=== PATIENT | female | born 1960 | race Caucasian/White ===

== ENCOUNTER 2019-12-22 12:14 | Outpatient (REF) | payer MEDICARE, SELFPAY | END 2019-12-22 12:15 | disposition home or self-care (01) | LOC: HO.MANLNP 12:14 | PROVIDERS: PCP Physician Assistant; Visit Provider Physician Assistant | DX: R50.9 Fever, unspecified (principal) | CPT/HCPCS: 87086; 87088; 87186 ==

== ENCOUNTER 2020-06-02 10:15 | Outpatient (REF) | payer MEDICARE, SELFPAY ==
[2020-06-02 12:42] LABS: MANUAL DIFF FLAG NO
[2020-06-02 12:44] LABS: Basophils Percent Auto 0.3 % (0-2); Eosinophils Absolute Auto 0.1 X10*3/uL (0.0-0.4); Eosinophils Percent Auto 0.5 % (0-4); Hematocrit 40.6 % (37-47); Hemoglobin 13.5 g/dl (12.0-16.0); Imm Gran Abs Auto 0.07 X10*3/uL (0.00-0.03); Imm Gran Pct Auto 0.6 % (0.0-0.4); Lymphocytes Absolute Auto 3.2 X10*3/uL (1.2-4.9); Lymphocytes Percent Auto 25.8 % (20-40); Mean Corpuscular HGB Conc 33.3 g/dl (31.0-35.0); Mean Corpuscular Hemoglobin 32.8 pg (27.0-33.0); Mean Corpuscular Volume 98.5 fL (80-98); Monocytes Absolute Auto 0.8 X10*3/uL (0.1-1.2); Monocytes Percent Auto 6.7 % (2-11); Neutrophils Absolute Auto 8.3 X10*3/uL (2.0-8.3); Neutrophils Percent Auto 66.1 % (45-73); Platelet Count 407 X10*3/uL (160-400); Red Blood Count 4.12 X10*6/uL (4.20-5.50); Red Cell Distribution Width 14.9 % (11.0-16.0); White Blood Count 12.5 X10*3/uL (4.8-10.8)
[2020-06-02 13:51] LABS: Erythrocyte Sedimentation Rate 17 MM/HR (0-20)
[2020-06-02 14:03] LABS: Alanine Aminotransferase 15 U/L (0-31); Albumin Level 4.4 g/dL (3.5-5.0); Alkaline Phosphatase 111 U/L (39-117); Anion Gap 17 (12-20); Aspartate Amino Transferase 19 U/L (5-31); Bilirubin Total 0.3 mg/dL (0.0-1.0); Blood Urea Nitrogen 15 mg/dL (9-16); C Reactive Protein 0.12 mg/dL (< or = 0.50); Calcium 9.7 mg/dL (8.4-10.2); Carbon Dioxide 22 mmol/L (22-29); Chloride 105 mmol/L (96-108); Estimated Glomerular Filt Rate > 60; Glucose Fasting 89 mg/dL (60-99); Iron 72 mcg/dL (30-160); Percent Iron Saturation 21 % (15-50); Potassium 4.5 mmol/L (3.3-5.1); Sodium 139 mmol/L (135-145); Total Iron Binding Capacity 340 mcg/dL (228-428); Unsaturated Iron Binding 268 ug/dL
[2020-06-02 14:23] LABS: Ferritin 21 ng/mL (10-250)
== END 2020-06-02 10:16 | disposition home or self-care (01) ==
LOC: HO.MANLDS 10:15
PROVIDERS: PCP Internal Medicine; Visit Provider Physician Assistant
DX: K92.1 Melena (principal)
CPT/HCPCS: 36415; 80053; 82728; 83540; 85025; 85652; 86140

== ENCOUNTER 2021-01-03 12:02 | Outpatient (REF) | payer MEDICARE, SELFPAY | END 2021-01-03 12:03 | disposition home or self-care (01) | LOC: HO.MANLNP 12:02 | PROVIDERS: PCP Physician Assistant; Visit Provider Physician Assistant | DX: R30.9 Painful micturition, unspecified (principal) | CPT/HCPCS: 87086; 87088; 87186 ==

== ENCOUNTER 2021-04-23 10:44 | Outpatient (REF) | payer MEDICARE, SELFPAY ==
[2021-04-23 13:27] LABS: MANUAL DIFF FLAG NO
[2021-04-23 13:32] LABS: Basophils Percent Auto 0.3 % (0-2); Eosinophils Absolute Auto 0.1 X10*3/uL (0.0-0.4); Eosinophils Percent Auto 0.5 % (0-4); Hematocrit 39.3 % (37.0-47.0); Hemoglobin 13.3 g/dl (12.0-16.0); Imm Gran Abs Auto 0.03 X10*3/uL (0.00-0.03); Imm Gran Pct Auto 0.3 % (0.0-0.4); Lymphocytes Absolute Auto 3.2 X10*3/uL (1.2-4.9); Lymphocytes Percent Auto 28.1 % (20-40); Mean Corpuscular HGB Conc 33.8 g/dl (31.0-35.0); Mean Corpuscular Hemoglobin 33.3 pg (27.0-33.0); Mean Corpuscular Volume 98.3 fL (80.0-98.0); Mean Platelet Volume 10.5 fL (9.4-12.3); Monocytes Absolute Auto 0.8 X10*3/uL (0.1-1.2); Monocytes Percent Auto 7.3 % (2-11); Neutrophils Absolute Auto 7.3 x10*3/uL (2.0-8.3); Neutrophils Percent Auto 63.5 % (45-73); Platelet Count 385 X10*3/uL (160-400); Red Cell Distribution Width 13.8 % (11.0-16.0); White Blood Count 11.5 X10*3/uL (4.8-10.8)
[2021-04-23 14:12] LABS: Alanine Aminotransferase 10 U/L (0-31); Albumin Level 4.2 g/dL (3.5-5.0); Alkaline Phosphatase 93 U/L (39-117); Anion Gap 14 (12-20); Aspartate Amino Transferase 16 U/L (5-31); Bilirubin Total 0.2 mg/dL (0.0-1.0); Blood Urea Nitrogen 18 mg/dL (9-16); C Reactive Protein 0.12 mg/dL (< or = 0.50); Calcium 9.9 mg/dL (8.4-10.2); Carbon Dioxide 25 mmol/L (22-29); Chloride 104 mmol/L (96-108); Estimated Glomerular Filt Rate > 60; Glucose Random 90 mg/dL (60-115); Iron 54 mcg/dL (30-160); Lactate Dehydrogenase 132 U/L (122-220); Percent Iron Saturation 16 % (15-50); Potassium 4.5 mmol/L (3.3-5.1); Sodium 138 mmol/L (135-145); Total Iron Binding Capacity 337 mcg/dL (228-428); Total Protein 6.9 g/dL (6.5-8.0); Unsaturated Iron Binding 283 ug/dL
[2021-04-23 14:16] LABS: Erythrocyte Sedimentation Rate 13 MM/HR (0-20)
[2021-04-23 14:26] LABS: Rheumatoid Factor < 15.0 IU/mL (<15.0)
[2021-04-23 14:32] LABS: Ferritin 37 ng/mL (10-250); Free T4 (Free Thyroxine) 0.75 ng/dL (0.71-1.85); Thyroid Stimulating Hormone 1.33 uIU/mL (0.32-4.0); Vitamin D 25-OH Total 21.9 ng/mL (>30)
[2021-04-23 14:46] LABS: Folate 4.2 ng/mL (> or = 4.0); Vitamin B12 346 pg/mL (200-900)
[2021-04-24 18:31] LABS: Follicle Stimulating Hormone 44.8 mIU/mL; Lutenizing Hormone 33.8 mIU/mL
[2021-04-24 22:37] LABS: Antibody to SS-A Antigen <1.0 NEG AI (<1.0 NEG); Antibody to SS-B Antigen <1.0 NEG AI (<1.0 NEG)
[2021-04-25 12:47] LABS: Prot Elec - Albumin 4.3 g/dL (3.8-4.8); Prot Elec - Alpha1 0.3 g/dL (0.2-0.3); Prot Elec - Alpha2 0.8 g/dL (0.5-0.9); Prot Elec - Beta 1 0.4 g/dL (0.4-0.6); Prot Elec - Beta 2 0.3 g/dL (0.2-0.5); Prot Elec - Gamma 0.7 g/dL (0.8-1.7); Prot Elec - Total Protein 6.8 g/dL (6.1-8.1)
[2021-04-25 13:36] LABS: Anti Nuclear Antibody Screen NEGATIVE (NEGATIVE)
[2021-04-28 02:51] LABS: Estradiol Free 0.31 pg/mL; Estradiol, Ultrasensitive 28 pg/mL
== END 2021-04-23 10:45 | disposition home or self-care (01) ==
LOC: HO.MANLDS 10:44
PROVIDERS: PCP Physician Assistant; Visit Provider Physician Assistant
DX: R53.83 Other fatigue (principal); L65.8 Other specified nonscarring hair loss; R50.84 Febrile nonhemolytic transfusion reaction; Z78.0 Asymptomatic menopausal state
CPT/HCPCS: 36415; 80053; 82306; 82607; 82670; 82681; 82728; 82746; 83001; 83002; 83540; 83615; 84165; 84439; 84443; 85025; 85652; 86038; 86039; 86140; 86235; 86431

== ENCOUNTER 2021-08-29 14:56 | Outpatient (REF) | payer MEDICARE, SELFPAY ==
[2021-08-29 17:48] LABS: MANUAL DIFF FLAG NO
[2021-08-29 17:52] LABS: Basophils Absolute Auto 0.1 X10*3/uL (0.0-0.2); Basophils Percent Auto 0.4 % (0-2); Eosinophils Absolute Auto 0.2 X10*3/uL (0.0-0.4); Eosinophils Percent Auto 1.4 % (0-4); Hematocrit 39.2 % (37.0-47.0); Hemoglobin 13.3 g/dl (12.0-16.0); Imm Gran Abs Auto 0.07 X10*3/uL (0.00-0.03); Imm Gran Pct Auto 0.5 % (0.0-0.4); Lymphocytes Absolute Auto 4.2 X10*3/uL (1.2-4.9); Mean Corpuscular HGB Conc 33.9 g/dl (31.0-35.0); Mean Corpuscular Hemoglobin 33.1 pg (27.0-33.0); Mean Corpuscular Volume 97.5 fL (80.0-98.0); Mean Platelet Volume 10.1 fL (9.4-12.3); Monocytes Absolute Auto 1.4 X10*3/uL (0.1-1.2); Neutrophils Absolute Auto 7.6 x10*3/uL (2.0-8.3); Neutrophils Percent Auto 56.7 % (45-73); Platelet Count 378 X10*3/uL (160-400); Red Blood Count 4.02 X10*6/uL (4.20-5.50); Red Cell Distribution Width 14.3 % (11.0-16.0); White Blood Count 13.5 X10*3/uL (4.8-10.8)
[2021-08-29 18:10] LABS: Alanine Aminotransferase 22 U/L (0-31); Albumin Level 4.4 g/dL (3.5-5.0); Alkaline Phosphatase 117 U/L (39-117); Amylase 63 U/L (28-100); Anion Gap 13 (12-20); Aspartate Amino Transferase 22 U/L (5-31); Bilirubin Total 0.3 mg/dL (0.0-1.0); Blood Urea Nitrogen 13 mg/dL (9-16); Calcium 9.4 mg/dL (8.4-10.2); Carbon Dioxide 26 mmol/L (22-29); Chloride 105 mmol/L (96-108); Estimated Glomerular Filt Rate > 60; Gamma Glutamyl Transpeptidase 41 U/L (7-33); Glucose Random 79 mg/dL (60-115); Lipase 27 U/L (8-78); Potassium 3.7 mmol/L (3.3-5.1); Sodium 140 mmol/L (135-145); Total Protein 6.9 g/dL (6.5-8.0)
== END 2021-08-29 14:57 | disposition home or self-care (01) ==
LOC: HO.MANLDS 14:56
PROVIDERS: Visit Provider Physician Assistant
DX: K59.09 Other constipation (principal)
CPT/HCPCS: 36415; 80053; 82150; 82977; 83690; 85025

== ENCOUNTER 2021-09-03 10:22 | Outpatient (REF) | payer MEDICARE, SELFPAY ==
[2021-09-03 13:24] LABS: Adenovirus F 40/41 Not Detected (Not Detect.); Astrovirus Not Detected (Not Detect.); Campylobacter Not Detected (Not Detect.); Cryptosporidium Not Detected (Not Detect.); Cyclospora cayetanensis Not Detected (Not Detect.); E. coli EAEC Not Detected (Not Detect.); E. coli EPEC Not Detected (Not Detect.); E. coli ETEC Not Detected (Not Detect.); E. coli STEC Not Detected (Not Detect.); Entamoeba histolytica Not Detected (Not Detect.); Giardia lamblia Not Detected (Not Detect.); Norovirus GI/GII Not Detected (Not Detect.); Plesiomonas shigelloides Not Detected (Not Detect.); Rotavirus A Not Detected (Not Detect.); Salmonella Not Detected (Not Detect.); Sapovirus Not Detected (Not Detect.); Shigella sp./EIEC Not Detected (Not Detect.); Vibrio Not Detected (Not Detect.); Vibrio Cholerae Not Detected (Not Detect.); Yersinia enterocolitica Not Detected (Not Detect.)
== END 2021-09-03 10:23 | disposition home or self-care (01) ==
LOC: HO.MANLDS 10:22
PROVIDERS: Visit Provider Physician Assistant
DX: K59.09 Other constipation (principal)
CPT/HCPCS: 36415; 87507

== ENCOUNTER 2024-06-09 11:39 | Outpatient (REF) | payer MEDICARE, SELFPAY ==
--- OUTSIDE RECORDS SUMMARY | 2024-06-09 14:07 | XMS_ITS | Data Portability ---
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 MUST MEET 2 OUT OF 3 ELEMENTS: PROBLEMS, DATA OR RISK ELEMENT 1: PROBLEMS ADDRESSED 1 OR MORE CHRONIC ILLNESS WITH EXACERBATION OR 2 OR MORE STABLE CHRONIC ILLNESSES OR 1 UNDIAGNOSED NEW PROBLEM OR 1 ACUTE ILLNESS W/SYMPTOMS OR 1 ACUTE COMPLICATED INJURY ELEMENT 2: DATA MUST MEET 1 OF 3 CATEGORIES CATEGORY 1: REVIEW OF PRIOR EXTERNAL NOTES, REVIEW OF RESULTS, ORDERING OF EACH TEST, ASSESSMENT REQUIRING INDEPENDENT HISTORIAN OR CATEGORY 2: INDEPENDENT INTERPRETATION OF TESTS BY ANOTHER PHYSICIAN OR SPECIALIST OR CATEGORY 3: DISCUSSION OF MGT OR TEST INTERPRETATION W/EXTERNAL PHYSICIAN OR SPECIALIST ELEMENT 3: RISK RISK OF COMPLICATIONS AND/OR MORBIDITY OR MORTALITY OF PATIENT MANAGEMENT PROVIDER MUST THOROUGHLY DOCUMENT EACH ELEMENT THAT IS COVERED Not available 08/09/2022 15:57:59 Plan of Treatment Reminders Order Date Submit Date Provider Last Modified By Organization Details Last Modified Time Details Appointments None recorded. Lab hepatitis C Ab, serum 2022 023 [facility], [address] [place] [address], [address], 3 16:00:52 iron + TIBC + ferritin, serum 2021 022 [facility], [address] [place] [address], [address], 2 14:35:22 CBC w/ auto diff 2021 022 [facility], [address] [place] [address], [address], 14:35:22 fecal occult blood, stool 2021 022 [facility], [address] [facility], [address], [place], [address], 15:27:19 C diff screen, stool, reflex PCR 2021 022 [facility], [address] [place], [address], 14:35:22 Referral None recorded. Procedures None recorded. Surgeries None recorded. Imaging CT, abdomen + pelvis, w/ contrast 2024 025 [email or web address] [facility], [address] [place], [address], 5 13:31:40 MRI, abdomen + pelvis, w/o contrast 2022 023 hrubner Not available 3 08:34:15 XR, kidney + ureter + bladder 2022 023 [email or web address] Not available 3 08:38:00 Medication Orders hydrocodon e 5 mg-acetami nophen 325 mg tablet 2024 025 [facility] #2024, [address] [place], [address], 5 11:19:28 cephalexin 500 mg tablet 2023 024 [email or web address] [facility] #2024, [address] [place], [address], 5 10:46:37 oxycodone 5 mg tablet 2022 023 [email or web address] [facility], [address] [place] [address], [id number], 5 10:47:01 dicyclomin e 10 mg capsule 2021 022 [facility]58613, [address] [place], [place], [id number], 3 15:10:58 tizanidine 4 mg tablet 2021 022 [facility] #59361, [address] [place], [place], [id number], 2 14:29:39 Patient TargetsNo targets recorded. Patient Instructions Encounter Date Encounter Id Patient Instructions Last Modified By Organization Details Last Modified Time 05/17/2024 [id number] chronic pelvic pain: care instructions Not available 05/17/2024 11:19:26 Reason for Referral None Reported. Results Created Date Observation Date Name Description Value Unit Range Abnormal Flag Note LastModifiedBy Organization Detail LastModifiedTime 01/17/20 22 01/15/2022 CT, abdom en + pelvi s, w/ contr ast No observ ation record ed. [facility] [address] [facility] [address], [place], [address], 01/16/2022 13:48:46 01/17/20 22 01/15/2022 MAMMO , scree ayah, digit al, bilat eral No observ ation record ed. [facility] [address] [place] [address], [address], 01/17/2022 07:22:29 08/16/19 23 08/14/2022 XR, kidne y + urete r + bladd er No observ ation record ed. [facility] (Scheduling Dept) [address] [place] [address], [address], 08/27/2022 10:16:58 Result Notes None recorded. Problems Name Problem SNOMED Code Status Onset Date Resolution Date Notes Provider Name and Address Organization Details Recorded Time Chronic interstit ial cystitis 369598558 Active 2018 Not Available [facility] 3 11:12:35 Irritable bowel syndrome 40302078 Active 2018 Not Available [facility] 3 11:12:35 Iron deficienc y anemia 68906983 Active 2018 Not Available [facility] 3 11:12:36 Acute urinary tract infection 217801977 Active 2021 Not Available [facility] 3 11:12:36 Constipat ion 91348160 Active 2021 Not Available [facility] 3 11:12:35 Uniform abdominal distentio n 632400289 Active 2021 Not Available [facility] 3 11:12:36 Localized abdominal distentio n 399055719 Active 2021 Not Available [facility] 3 11:12:36 Colitis 59731839 Active 2021 Not Available [facility] 3 11:12:36 Obstipati on 357204823 Active 2021 Not Available [facility] 3 11:12:35 Abdominal pain 16361868 Active 2021 Not Available [facility] 3 11:12:36 Stomach cramps 92123300 Active 2021 Not Available [facility] 3 11:12:36 Gastroint estinal hemorrhag e 58146252 Active 2021 Not Available [facility] 3 11:12:36 Partial obstructi on of intestine 645885302302 90827 Active 2021 Not Available [facility] 3 11:12:35 Internal hemorrhoi ds 77020200 Active 2021 Not Available [facility] 3 11:12:36 Influenza -like symptoms 948233768 Active 2022 Not Available [facility] 3 11:12:36 Incisiona l hernia 264600841 Active 2022 Not Available [facility] 3 11:12:36 Acute pyeloneph ritis 07596948 Active 2022 Not Available [facility] 3 11:12:36 Hernia of anterior abdominal wall 567665966 Active 2022 Not Available [facility] 3 11:12:36 Adhesion of abdominal wall 35592842 Active 2022 Not Available [facility] 3 11:12:36 Rupture of hernia of abdominal wall 457987960 Active 2022 Not Available [facility] 3 11:12:36 Female pelvic inflammat ory disease 153959835 Active 2022 Not Available [facility] 3 11:12:35 Acute sinusitis 78945479 Active 2023 SHANTHI ESQUIVEL [address] [place] [address], [address], [facility] 4 14:22:02 Celluliti s 396406493 Active 2023 SHANTHI ESQUIVEL [address] [place], [address], [facility] 4 13:41:01 Acute otitis media 8662551 Active 2023 SHANTHI ESQUIVEL [address] [place], [address], [facility] 4 10:13:35 Chronic pelvic pain without obvious pathology 791798662 Active 2024 Abad Cee DO [address] [place] [address], [address], [facility] 5 11:14:46 Urostomy present 093032171 Active 2017 Not Available [facility] 3 11:12:36 Problem Notes None recorded. Procedures Surgical History Date Name Laterality Status Provider Name and Address Organization Details Recorded Time 11/07/19 18 Colonoscopy completed Rena Aragon [facility] 11/07/2017 08:08:36 Total Hysterectomy completed Abad Cee DO [address] [place] [address], [phone], [facility] 05/09/2021 10:00:52 Imaging Results Imaging Date Name Status LastModified by Organiz ation Details LastModified Time 01/15/2022 CT, abdomen + pelvis, w/ contrast completed [facility] [address] [facility] [address], [place], [address], 01/16/2022 13:48:46 01/15/2022 MAMMO, screening, digital, bilateral completed [address] [facility] [address] [place] [address], [address], 01/17/2022 07:22:29 08/14/2022 XR, kidney + ureter + bladder completed [address] (Scheduling Dept) [address] [place], [address], 08/27/2022 10:16:58 Procedure Notes None recorded. Medical Equipment None Reported. Allergies Allergen ID Allergen Name Allergen Category Reaction Reaction Severity Criticality Documentation Date Start Date Code Code System Note Provider Name and Address Organization Details Recorded Time 1863 Avelox medicatio n angioedem a Not available Not available 2017 55693 6 RxNorm Doris Blankenship NP, S [address] [place], [address], [facility] 8 14:08:07 1865 Iodinated contrast media (substanc e) medicatio n angioedem a Not available Not available 2017 85188 2004 SNOMED Doris Blankenship NP, S [address] [place], [address], [facility] 8 14:08:22 4010 Cipro medicatio n Not available Not available Not available 10/01/201983422 3 RxNorm flu like sympt oms, muscl e pain SHANTHI ESQUIVEL [address] [place], [address], [facility] 1 11:46:41 6968 tramadol medicatio n headache Not available [facility] 08/09/2022 58843 RxNorm Abad Cee DO [address] [place], [address], [facility] 5 11:12:07 Medications Name Sig Start Date Stop Date Status Note LastModified by Organization Details LastModified Time diphenhydra mine hcl 25mg capsules TAKE 2 CAPSULES 1 HOUR PRIOR TO TEST active Not Available Not Available No t Available Prescriptio n - New 08/30 completed Not Available Not Available Not Available amoxicillin 500 mg capsule TAKE 2 CAPSULES BY MOUTH NOW THEN 1 CAPSULE BY MOUTH EVERY 8 HOURS UNTIL ALL TAKEN 08/09 completed Not Available Not Available Not Available fluconazole 100 mg tablet TAKE 1 TABLET BY MOUTH EVERY DAY active Not Available Not Available No t Available cetirizine 10 mg tablet TAKE 1 TABLET 1 HOUR PRIOR TO TEST active Not Available Not Available No t Available tizanidine 4 mg tablet TAKE 1 TABLET BY MOUTH EVERY 6 HOURS NEEDED FOR 14 DAYS 2024 active Not Available Not Available Not Avai lable hydrocodone 5 mg-acetamin ophen 325 mg tablet Take 1 tablet every 6 hours by oral route as needed for 7 days. 2024 active Not Available Not Available Not Avai lable prochlorper azine maleate 5 mg tablet TAKE 1 TABLET EVERY 4 HOURS BY ORAL ROUTE FOR 90 DAYS. active Not Available Not Available No t Available metronidazo le 250 mg tablet Take 1 tablet 3 times a day by oral route for 10 days. 12/10 completed Not Available Not Available Not Available metronidazo le 500 mg tablet Take 1 tablet every 8 hours by oral route for 10 days. 12/21 completed Not Available Not Available Not Available ciprofloxac in 250 mg tablet TAKE 1 TABLET BY MOUTH TWICE DAILY FOR 10 DAYS 11/07 completed Not Available Not Available Not Available levofloxaci n 250 mg tablet TAKE 1 TABLET BY MOUTH EVERY DAY FOR 10 DAYS 08/09 completed Not Available Not Available Not Available ciprofloxac in 500 mg tablet TAKE 1 TABLET BY MOUTH EVERY 12 HOURS FOR 10 DAYS 05/17 completed Not Available Not Available Not Available sulfamethox azole 800 mg-trimetho prim 160 mg tablet TK 1 T PO Q 12 H FOR 10 DAYS 02/20 completed Not Available Not Available Not Available tramadol 50 mg tablet TAKE 1 TABLET BY MOUTH EVERY 6 HOURS FOR 7 DAYS 08/09 completed Not Available Not Available Not Available amoxicillin 875 mg tablet TAKE 1 TABLET BY MOUTH EVERY 12 HOURS FOR 7 DAYS 05/17 completed Not Available Not Available Not Available dicyclomine 20 mg tablet TAKE 1 TABLET BY MOUTH FOUR TIMES A DAY active Not Available Not Available No t Available cephalexin 500 mg capsule TAKE 1 CAPSULE BY MOUTH EVERY 6 HOURS DIRECTED FOR 7 DAYS 05/17 completed Not Available Not Available Not Available oseltamivir 75 mg capsule TAKE 1 CAPSULE BY MOUTH TWICE DAILY FOR 5 DAYS 08/09 completed Not Available Not Available Not Available ferrous sulfate 325 mg (65 mg iron) tablet Take 1 tablet every day by oral route. 07/01 completed Not Available Not Available Not Available prednisone 50 mg tablet active Not Available Not Available Not Available mirtazapine 45 mg tablet TAKE 1 TABLET BY MOUTH ONCE DAILY 08/30 completed Not Available Not Available Not Available cephalexin 500 mg tablet Take 1 tablet every 6 hours by oral route as directed for 7 days. 05/17 completed Not Available Not Available Not Available morphine ER 15 mg tablet,exte nded release Take 1 tablet every 8 hours by oral route for 2 days. 07/01 completed Not Available Not Available Not Available levofloxaci n 500 mg tablet TAKE 1 TABLET BY MOUTH EVERY 24 HOURS FOR 7 DAYS 05/17 completed Not Available Not Available Not Available Anusol-HC 25 mg rectal suppository Insert 1 supposito ry twice a day by rectal route for 14 days. 12/22 completed Not Available Not Available Not Available methylpredn isolone 4 mg tablets in a dose pack TAKE 6 TABLETS ON DAY 1 DIRECTED ON PACKAGE AND DECREASE BY 1 TAB EACH DAY FOR A TOTAL OF 6 DAYS 05/17 completed Not Available Not Available Not Available albuterol sulfate HFA 90 mcg/actuati on aerosol inhaler INHALE 2 PUFFS BY MOUTH EVERY 4 HOURS 08/09 completed Not Available Not Available Not Available dicyclomine 10 mg capsule TAKE 1 CAPSULE BY MOUTH THREE TIMES DAILY FOR 14 DAYS 08/09 completed Not Available Not Available Not Available estradiol 0.1 mg/24 hr weekly transdermal patch APPLY 1 PATCH TOPICALLY EVERY WEEK active Not Available Not Available No t Available naproxen 500 mg tablet 08/09 completed Not Available Not Available Not Available amoxicillin 875 mg-ruiz benitez clavulanate 125 mg tablet TAKE 1 TABLET BY MOUTH EVERY 12 HOURS FOR 10 DAYS 05/17 completed Not Available Not Available Not Available oxycodone 5 mg tablet TAKE 1 TABLET BY MOUTH TWICE A DAY NEEDED FOR 10 DAYS 05/17 completed Not Available Not Available Not Available Benadryl Allergy 25 mg tablet Take 2 tablets every 4 hours by oral route as needed. 08/09 completed Not Available Not Available Not Available nitrofurant oin monohydrate /macrocryst als 100 mg capsule TAKE 1 CAPSULE BY MOUTH EVERY 12 HOURS FOR 7 DAYS active Not Available Not Available No t Available lactulose 10 gram/15 mL oral solution TAKE 15 ML BY MOUTH EVERY DAY FOR 7 DAYS NEEDED 08/09 completed Not Available Not Available Not Available peg 3350-electr olytes 236 gram-22.74 gram-6.74 gram-5.86 gram solution MIX AND DRINK DIRECTED 08/09 completed Not Available Not Available Not Available Linzess 290 mcg capsule 08/09 completed Not Available Not Available Not Available Tylenol 325 mg capsule Take 2 capsules 3 times a day by oral route. 05/05 completed Not Available Not Available Not Available Vitals Date Recorded Body height Oxygen saturation Oxygen saturation in Arterial blood by Pulse oximetry Heart rate Systolic blood pressure Diastolic blood pressure Provider Name and Address Organization Details Last Updated DateTime 2 149.86 cm 97 % 97 % 88 /min 110 mm[Hg] 70 mm[Hg] Tami Franco [facility] 2 14:12:35 Date Recorded Body height Body mass index (BMI) Body weight Heart rate Oxygen saturation Oxygen saturation in Arterial blood by Pulse oximetry Systolic blood pressure Diastolic blood pressure Provider Name and Address Organization Details Last Updated DateTime 3 149.86 cm 20.3 kg/m2 54211.3 9 g 96 /min 96 % 96 % 108 mm[Hg] 60 mm[Hg] Abad Cee, DO [address] [place], [address], [facility] 3 15:13:01 Date Recorded Body height Heart rate Oxygen saturation Oxygen saturation in Arterial blood by Pulse oximetry Systolic blood pressure Diastolic blood pressure Provider Name and Address Organization Details Last Updated DateTime 3 149.86 cm 78 /min 96 % 96 % 110 mm[Hg] 72 mm[Hg] Xenia Morejon [facility] 3 14:33:36 Date Recorded Body height Body mass index (BMI) Body weight Systolic blood pressure Diastolic blood pressure Provider Name and Address Organization Details Last Updated DateTime 03/25/2023 149.86 cm 21.2 kg/m2 26043.2 g 120 mm[Hg] 80 mm[Hg] Lien Gomezmond [facility] 4 13:36:06 Date Recorded Body height Body mass index (BMI) Body weight Heart rate Oxygen saturation Oxygen saturation in Arterial blood by Pulse oximetry Systolic blood pressure Diastolic blood pressure Provider Name and Address Organization Details Last Updated DateTime 5 149.86 cm 22.9 kg/m2 69653.7 3 g 92 /min 98 % 98 % 124 mm[Hg] 78 mm[Hg] Debbie Caro [facility] 5 10:50:33 Social History Question Answer Notes LastModified by Organizat ion Details LastModified Time Tobacco Smoking Status Former Smoker Not Available [facility] 12/21/2019 03:36:24 What Was The Date Of Your Most Recent Tobacco Screening? 05/17/2024 [email or web address] Information not available 05/17/2024 Do You Or Have You Ever Used Any Other Forms Of Tobacco Or Nicotine? No Information not available 08/09/2022 Sex: Unknown Functional Status None recorded. Mental Status None recorded. Family History Nothing Reported. Medical History No medical history recorded. Gynecological HistoryNo gynecological history recorded. Obstetrics History GPAL:G 0 P 0 0 0 0 Immunizations Vaccine Type Date Status Note Provider Nam e and Address Organization Details Recorded Time COVID-19, mRNA, LNP-S, PF, 30 mcg/0.3 mL dose 1 completed Not Available [facility] 01/04/2022 19:06:28 Influenza, split virus, quadrivalent, preservative 1 completed Not Available [facility] 01/04/2022 19:06:28 COVID-19, mRNA, LNP-S, PF, 30 mcg/0.3 mL dose 2 completed Not Available [facility] 01/04/2022 19:06:28 SARS-COV-2 (COVID-19) vaccine, UNSPECIFIED 3 completed Xenia Morejon [facility], [facility] 11/15/2022 08:40:27 influenza nasal, unspecified formulation 3 completed Xenia Morejon [facility] 11/15/2022 08:40:44 Respiratory syncytial virus (RSV) vaccine, unspecified 3 completed Monroe Cee [facility] 01/03/2023 11:14:22 influenza nasal, unspecified formulation 4 completed Debbie Caro [facility] 11/17/2023 08:27:44 SARS-COV-2 (COVID-19) vaccine, UNSPECIFIED 4 completed Debbie Caro [facility] 11/17/2023 08:27:51 Past Encounters Encounter ID Performer Location Encounter Start Date Encounter Closed Date Diagnosis/Indication Diagnosis SNOMED-CT Code Diagnosis ICD10 Code Diagnosis Note [id number] Doris Blankenship NP, [facility] [address] [place] [address],[place] [address] 2017 14:01:11 09/02/2017 08:09:24 Acute cystitis 05956500 N30.00 [id number] Abad Cee DO [facility] [address],[place] [address] 09/17/2017 11:57:12 09/17/2017 14:35:20 Rectal hemorrhage 05071027 K62.5 multifacto rial etiology as this could be divertic or AVM [place] or [place] [id number] May AZAEL Rivera [facility] [address] [place] [address] 12/10/2017 10:27:40 12/10/2017 11:26:09 Acute urinary tract infection 102833633 N39.0 had an allergy to brand cipro, no difficulty with generic cipro [facility] 673633824 N30.10 [id number] [facility] [address] [facility], [place] [address] 01/30/2018 15:27:59 01/30/2018 16:07:30 Acute urinary tract infection 641976279 N39.0 as with cipro, she has had allergy to brand avelox, but has taken generic levaquin without issue Urostomy present 5487662 04 Z93.6 Chronic in terstitial cystitis 515650981 N30.10 [id number] Doris Blankenship NP, S [facility] [address] [facility], [place] [address] 05/05/2018 10:36:55 05/05/2018 14:31:25 Urostomy present 593956965 Z93.6 Irritable bowel syndrome 39934665 K58.9 prn bentyl Chronic in terstitial cystitis 373094806 N30.10 Iron defic iency anemia 81392505 D50.9 Chronic pain syndrome 37 8242454 G89.4 [id number] Abad Cee [facility] [address] [facility], [place] [address] 06/08/2018 11:44:28 06/08/2018 12:19:18 Internal hemorrhoids 17524963 K64.8 will treat and give pain med for discomffor t [id number] [facility] [address] [facility], [place] [address] 12/22/2018 11:23:18 12/22/2018 12:03:10 Diverticulitis of colon 377544096 K57.32 due to poor IV access, very reluctant to go to ER. will trial oral treatment if no improvemen t in 24 hours, agrees to go to ER continue probiotic [id number] Abad Cee [facility] [address] [facility], [place] [address] 01/04/2019 10:36:01 01/04/2019 11:01:16 Diverticulosis of sigmoid colon 228156694 K57.30 now having signif episodes of rectal bleeding with large clots and particulat e Iron defic iency anemia 05090468 D50.9 followed by hematology iron infusion was excellent [id number] SHANTHI ESQUIVEL [facility] [address] [facility] [address] [address] 07/02/2019 10:35:28 07/02/2019 11:41:11 Dysuria 10962745 R30.9 will treat for nephritis, she will let us know if she gets worse has been on cipro several times in the past, not had a reaction [id number] Abad Cee, [facility] [address] [facility] [address] 08/31/2019 10:58:22 08/31/2019 11:40:25 Fatigue 31066547 R53.83 Has history of anemia and rectal bleed Will recheck CBC for anemia and TSH Loss of appetite 2951643 6 R63.0 Lost 10-20 lb over last 3 mo Iron defic iency anemia 06555015 D50.9 followed by hematology - seeing at end of month Will get iron studies prior to tele call Depressive disorder 3548 9007 F32.9 was feeling crappy and decided it was the mirtszapin e and now feels markedly better [place] the med [id number] SHANTHI ESQUIVEL [facility] [address] [facility],[place] [address] 09/03/2019 14:26:49 09/03/2019 14:51:15 Dysuria 65937144 R30.9 [id number] SHANTHI ESQUIVEL [facility] [address] [facility] [address] [address] 10/01/2019 13:54:02 10/01/2019 14:48:47 Dysuria 45902644 R30.9 patient reports that last time she was on cipro she got very bad side effects do not want to put her on levaquin either as it may cause the same side effects she had will try bactrim if it not tolerable or doesn't work with try another medication Chronic in terstitial cystitis 725821502 N30.10 chronic infections Nausea 567697070 R11.0 will treat as she is on the medication Urostomy present 8178207 04 Z93.6 irritated, with abrasion present [id number] SHANTHI ESQUIVEL [facility] [address] [facility], [place] [address] 12/22/2019 10:40:21 12/22/2019 12:21:06 Fever 489511200 R50.9 the patient states she feels subjective feverish due to UTI symptoms no fever at office Acute urin donte tract infection 951789184 N39.0 results show UTI also stoma producing foul smelling urine and discharge [id number] Abad Cee DO [facility] [address] [facility], [place] [address] 02/23/2020 10:10:40 02/23/2020 11:27:27 Chronic interstitial cystitis 739631314 N30.10 obviously did not resolve with bactrim has had several reactions noted to avelox and cipro but has tolerated the levaquin in past with no side effects will tentativel y try the levaquin becuase there has been no other med available for this macrobid had been used by urology for 9 mo for preventati ve which then led to resistance Urostomy present 6559598 04 Z93.6 Iron defic iency anemia 23311032 D50.9 followed by hematology - seeing at end of month Will get iron studies prior to tele call [id number] SHANTHI ESQUIVEL [facility] [address] [place] [address], [place] [address] 06/02/2020 09:55:45 06/02/2020 10:29:54 Hematochezia 542682876 K92.1 will fu with GI to have them work her up will also set her up with BW to fu with as well to see how her iron, CBC has been impacted by them bleeding Rectal prolapse [id number] K62.3 will fu with GI, rectal prolapse vs internal hemorrhoid s Acute urin donte tract infection [id number] N39.0 reccurent UTI due to stoma [id number] SHANTHI ESQUIVEL [facility] [address] [place] [address],[place] [address] 01/03/2021 10:57:40 01/03/2021 15:38:55 Dysuria 54524382 R30.9 will fu with abx script [id number] SHANTHI ESQUIVEL [facility] [address] [facility] [address], [place] [address] 02/19/2021 09:49:46 02/21/2021 10:52:54 Nausea 250709610 R11.0 chronic nausea due to stoma and intestinal problems Chronic ur inary tract infection 225565910 N34.2 will start on cipro again, will change out abx next time [id number] SHANTHI ESQUIVEL [facility] [address] [facility] [address], [place] [address] 04/23/2021 10:22:34 04/23/2021 16:55:49 Fatigue 35971229 R53.83 f/u with BW panel Loss of hair 317802667 L 65.8 f/u with BW panelwill fu after lab results are recieved Urostomy present 7036524 04 Z93.6 stable Pyrexia of unknown origin 2049694 R50.84 lab work up Menopause 323505490 Z78. 0 will fu with lab testing for menopause as well as a possible explanatio n [id number] Abad Cee, [facility] [address] [facility], [place] [address] 05/09/2021 09:54:43 05/11/2021 09:17:40 Left lower quadrant pain 121817786 R10.32 having ongoing pain and partial obstructio n symptoms and fever we will order mri Chronic in terstitial cystitis 332649730 N30.10 uti again will need to tx Iron defic iency anemia 43697735 D50.9 followed by hematology - seeing at end of month Will get iron studies prior to tele call Irritable bowel syndrome 51830420 K58.9 seems to be quiet right now and her usual symptoms are absent [id number] [facility] [address] [facility] [address], [place] [address] 08/15/2021 09:28:30 08/15/2021 14:42:43 Constipation 61597260 K59.09 patient will be NPO, can drink waterwill fu with STAT XR ABD as this is the quickest imaging resultwill fu with patient afterwards if worsening [place] [address] Xenia Woodruff [facility] [address] [facility] [address],[place] [facility] [place] [address] 2021 14:25:09 2021 16:46:27 Constipation 43992972 K59.09 will fu with MRI, start on lactulose and stool sampling Localized abdominal distention 626311995 R14.0 will fu with full work up with MRI since CT did show thickening of her sigmoid colon and descending colon Colitis 80185157 K52.9 [place] [id number] Abad Cee DO [facility] [address] [facility],[place] [facility] [place] [address] 10/09/2021 10:17:37 10/09/2021 11:40:36 Chronic interstitial cystitis 329934405 N30.10 [place] [address] SHANTHI ESQUIVEL [facility] [address] [facility] [address],[place] [facility] [place] [address] 11/07/2021 14:01:13 11/07/2021 16:40:52 Abdominal pain 41948118 R10.0 fu with patient in a few weeks after she sees GI Stomach cramps 08920099 R10.0 will start on dicyclomin e and tizanidine in the meantime Gastrointe stinal hemorrhage 31382533 K92.0 will check levels since she is still bleedingdi d get into GI at [facility], appt is Nov 19 [address] Abad Cee DO [facility] [address] [facility] [address],[place] [facility] [place] [address] 08/09/2022 15:02:56 08/09/2022 16:14:51 Abdominal pain 95822860 R10.0 froma possible mesh shift or herniation or adhesion? she needs an mri but this has been denied by insurance repeatedly will get a KUB and then see if i can get an mrishe will need to see a surgeon pending this . Incisional hernia 107105 000 K43.2 tramadol ordered for poss pain from irritation Urostomy present 4634434 04 Z93.6 stable but irritated Hepatitis C screening 41 4203092 Z11.59 Advance care planning 71 3286215 Z71.89 77699 Abad Cee [facility] [address] [facility],[place] [address] 12/17/2022 14:18:24 12/17/2022 15:05:48 Colitis 34787586 K52.9 ongoing young currently ok Acute pyelonephritis 366 33875 N10 resolved Rupture of hernia of abdominal wall 422303866 K43.9 [id number] SHANTHI ESQUIVEL [facility] [address] [facility],[place] [address] 03/25/2023 13:23:01 03/25/2023 13:51:25 Nephrostomy 01099377 Z93.6 stable Cellulitis 921005811 L03 .211 will start on short course of cephalexin [id number] Abad Cee [facility] [address] [facility],[place] [address] 05/17/2024 10:41:08 05/17/2024 11:20:31 Iron deficiency anemia 12079273 D50.9 followed by hematology - seeing at end of month Will get iron studies prior to tele call Depression screening 171 172628 Z13.31 Urostomy present 9860112 04 Z93.6 stable but irritated Irritable bowel syndrome 66935807 K58.9 seems to be quiet right now and her usual symptoms are absent Chronic in terstitial cystitis 937992621 N30.10 ongoing pain syndrome secondary to prior surgery and scar and hernia mesh embedded Chronic pe lvic pain without obvious pathology 280380969 R10.2 will need referral to [facility] pain management Health Concerns Section Related Observation LastModified by Organization Detai ls LastModified Time None Recorded Concern Status LastModified by Organization Details LastModified Time None Recorded Advance Directives Directive None Recorded Payers Encounter Date Sequence Insurance Name Policy Number Policy Hendrix Covered Member ID Hendrix Member ID Guarantor Name 11/07/2021 1 [place] HMO) [id number] Deann L Ethier [id number] Deann L Ethier 08/09/2022 1 [place]MO) [id number] Deann L Ethier [id number] Deann L Ethier 12/17/2022 1 [place] HMO) [id number] Deann L Ethier [id number] Deann L Ethier 03/25/2023 1 [place]MO) [id number] Deann L Ethier [id number] Deann L Ethier 05/17/2024 1 [place]MED[place] HMO) [id number] Deann L Ethier [id number] Deann L Ethier 05/17/2024 2 [place] [facility] Deann L Ethier [id number] Deann L Ethier Notes Date Note Type Note Provider Name a nd Address Organization Details Recorded Time 2 text/html c/o abdominal pain the patient reports significant anal bleeding, all daythe patient reports the abdominal pain is still significant and worse when she has a bowel movementis set up for GI referral for Layhedid want her to get a colonoscopy done since imaging is normalcontinues to have rectal bleeding SHANTHI ESQUIVEL [address] [place], [address], [facility] 11/07/2021 14:43:27 3 text/html here for rechk and has been having a lot of pain and discomfort at her ostomy site and has noticed that her ostomy site has shifted to the the right and her umbilicus has shifted to the left this is a distinct change for her and i have never seen it like this in 20+ years Abad Cee DO [address] [place], [address], [facility] 08/09/2022 16:04:49 3 text/html here for med check she still needs to take the med bidto keep any semblance of control over the pain;she is only taking bidrelates that one day she didnt take of 3 days without withdrawal sx feels tizanidinestill having a great deal of discomfort and she is in signif pain daily unless she takes the oxycodrelates urol not helping her with the chronic pain and we are still wondering if the mesh for her hernia has been disruptedand /or ruptured as it had in the past Abad Cee DO [address] [place], [address], [facility] 12/17/2022 15:01:06 4 text/html c/o abscess/cellulitis the patient had an abscess behind left earhad an ear infection in that earended up rupturing this weekendgreen colored purulent dischargeno fever or chillslooks good today, no inflammation, no discharge or drainageno tenderness, no warmth does still have the opening to the area it drained fromwill start on short preventative course of keflexwill call if it starts filling up SHANTHI ESQUIVEL [address] [place], [address], [facility] 03/25/2023 13:48:30 5 text/html ongoing pelvic pain for years and it seems to have been worsened over time where no has ongoing pain Abad Cee DO [address] [place], [address], [facility] 05/17/2024 11:19:52 5 text/html Pelvic PainReported bypatient.Location:l eft; mid pelvis Onset/Timing:gradual Duration:constant; persistent Quality:throbbing; pressure increased with intercourse Associated Symptoms:no abdominal pain; no back pain; no chills; no constipation; no diarrhea; no vaginal discharge; no pain with urination; normal emptying of bladder; no feelings of urgency; no blood in the urine; normal libido; no fever; no nausea; no vomiting; no nocturia; no sexual abuse; no ectopic pregnancies; no endometriosis; no urinary frequency; no vaginal itching or irritation;dyspareun ia Abad Cee, DO [address] [facility], [place], [address], [facility] 05/17/2024 11:19:52 OBGyn Episode No OBEpisode recorded.
[2024-06-10 10:53] LABS: Rubella IgG Antibody 5.46 Index
== END 2024-06-09 11:40 | disposition home or self-care (01) ==
LOC: HO.MANLDS 11:39
PROVIDERS: Visit Provider Physician Assistant
DX: Z00.00 Encounter for general adult medical examination without abnormal findings (principal); Z28.39 Other underimmunization status
CPT/HCPCS: 36415; 86735; 86762; 86765

== ENCOUNTER 2024-10-27 09:50 | Outpatient (REF) | payer MEDICARE, SELFPAY ==
--- OUTSIDE RECORDS SUMMARY | 2024-10-27 11:48 | XMS_ITS | Encounter Summary ---
Author Organization [facility] Address [address] [place] [address] [place] [address] Phone Care Team Providers Care Manufacturing Team Leader Name Role Phone Abad Cee DO Primary Care Provider [phone] Reason for Referral * MRI/CAT Scan - Closed Specialty Diagnoses / Procedures Referred By Morris pruitt Referred To Contact Radiology Diagnoses LLQ pain Procedures MRI Abdomen CHG MRI, ABDOMEN, COMBO CHG MRI, ABDOMEN (MRI) CHG MRI, ABDOMEN W/CONTRAST Abad Cee DO Phone: tel: fax: [email or web address] Referral ID Status Reason Start Date Expiration Date Visits Re quested Visits Authorized [id number] Closed 05/09/2021 07/08/2021 1 1 Encounter Details Date Type Department Care Team (Late st Contact Info) Description 05/09/2021 Transcribe Orders Virtual Department [address] [place] [address] Abad Cee DO [address] [place] [address] [email or web address] LLQ pain (Primary Dx) Social History Tobacco Use Types Packs/Day Years Used Date Smoking Tobacco: Former Smokeless Tobacco: Never Alcohol Use Standard Drinks/Week Comments Not Currently 0 (1 standard drink = 0.6 oz pur e alcohol) Comments No Sex and Gender Information Value Date Recorded Sex Assigned at Female 10/12/2019 5:57 AM EDT Legal Sex Female 5:35 PM EST Gender Identity Not on file Sexual Orientation Straight 10/12/2019 5: 57 AM EDT documented as of this encounter Plan of Treatment Upcoming Encounters Date Type Department Care Team (Late st Contact Info) Description 10/12/2024 Procedure Pass [address] [address] 05/09/2025 3:10 PM EDT Appointment [address] [address] Abad Cee, [address] [place] [facility] [place] [address] [email or web address] documented as of this encounter Results * MRI ABDOMEN WITHOUT CONTRAST (06/27/2021 5:09 PM EDT) Anatomical Region Laterality Modality Abdomen Magnetic Resonan ce 06/28/2021 8:16 AM EDT Impressions 06/28/2021 8:29 AM EDT No explanation for pain. No evidence of acute pathology in the abdomen. Postsurgical changes. Narrative 06/28/2021 8:29 AM EDT MRI ABDOMEN WITHOUT CONTRAST HISTORY: Left lower quadrant pain, heme positive stool for 3 years, status-post cystectomy and creation of ileal conduit creation with bowel anastomosis. TECHNIQUE: A non-enhanced study is performed. Multiplanar MR imaging of the abdomen was performed using T1, T2, fat saturated, and diffusion weighted techniques. No intravenous contrast material was administered. COMPARISON: CT abdomen 03/03/2019. ABSENCE OF INTRAVENOUS CONTRAST DECREASES SENSITIVITY FOR DETECTION OF FOCAL LESIONS AND VASCULAR PATHOLOGY. FINDINGS: Lower Chest: No abnormalities demonstrated. Artifact involving the distal descending thoracic aorta. Liver: No abnormalities demonstrated. Biliary: No evidence of biliary ductal dilatation. Spleen: Normal. No splenomegaly or focal lesions. Pancreas: Normal. No masses or ductal dilatation. Adrenal Glands: Normal. No nodules. Kidneys/Ureters: Tiny cyst lateral aspect of the interpolar region of the right kidney. No other renal abnormalities. Proximal ureters normal in caliber. Bowel: Similar distention of the colon by stool as demonstrated on 03/03/2019. Partial imaging of a right lower quadrant ileostomy. Peritoneum/Retroperitoneum: No evidence of free fluid or masses. Lymph Nodes: No suspicious lymph nodes. Vessels: Abdominal aorta normal in caliber. Bones/Soft Tissues: No evidence of abdominal wall masses. No suspicious marrow signal abnormalities. Procedure Note Mason Ramires MD - 06/28/2021 MRI ABDOMEN WITHOUT CONTRAST HISTORY: Left lower quadrant pain, heme positive stool for 3 years,status-post cystectomy and creation of ileal conduit creation with bowelanastomosis. TECHNIQUE: A non-enhanced study is performed. Multiplanar MR imaging ofthe abdomen was performed using T1, T2, fat saturated, and diffusionweighted techniques. No intravenous contrast material was administered. COMPARISON: CT abdomen 03/03/2019. ABSENCE OF INTRAVENOUS CONTRAST DECREASES SENSITIVITY FOR DETECTION OFFOCAL LESIONS AND VASCULAR PATHOLOGY. FINDINGS: Lower Chest: No abnormalities demonstrated. Artifact involving the distaldescending thoracic aorta. Liver: No abnormalities demonstrated. Biliary: No evidence of biliary ductal dilatation. Spleen: Normal. No splenomegaly or focal lesions. Pancreas: Normal. No masses or ductal dilatation. Adrenal Glands: Normal. No nodules. Kidneys/Ureters: Tiny cyst lateral aspect of the interpolar region of theright kidney. No other renal abnormalities. Proximal ureters normal incaliber. Bowel: Similar distention of the colon by stool as demonstrated on03/03/2019. Partial imaging of a right lower quadrant ileostomy. Peritoneum/Retroperitoneum: No evidence of free fluid or masses. Lymph Nodes: No suspicious lymph nodes. Vessels: Abdominal aorta normal in caliber. Bones/Soft Tissues: No evidence of abdominal wall masses. No suspiciousmarrow signal abnormalities. IMPRESSION: No explanation for pain. No evidence of acute pathology in the abdomen.Postsurgical changes. Abad Cee DO [facility] MR ABDOMEN Final Result documented in this encounter Visit Diagnoses Diagnosis LLQ pain- Primary Abdominal pain, left lower quadrant LLQ pain Abdominal pain, left lower quadrant documented in this encounter Care Teams Manufacturing Team Leader Relationship Specialty Start Date End Date Abad Cee DO [email or web address] PCP - General 08/17/13 documented as of this encounter Additional Source Comments The information contained in this document represents components of the legal health record. It is not the complete legal health record.[facility]
--- OUTSIDE RECORDS SUMMARY | 2024-10-27 11:48 | XMS_ITS | Encounter Summary ---
Author Organization [facility] Address [address] [address] Phone Care Team Providers Care Plier Worker Name Role Phone HyacinthAbad pitt Primary Care Provider [phone] Encounter Details Date Type Department Care Team (Latest Contact Info) Description 08/15/2021 Transcribe Orders Virtual Department [address] [place] [address] Kelly Dee PA [address] [place] [address] [place] [address] Other constipation (Primary Dx) Social History Tobacco Use Types [...] AM EDT documented as of this encounter Functional Status * Calculated C-SSRS Risk Score (Lifetime/Recent) Answer Date of Assessment Author No Risk Indicated 08/15/2021 5:15 PM EDT Gaby Sharp, RN * [place] Suicide Severity Rating Scale (Screener/Recent Self-Report) Question Answer Date of Assessment Author 1. Wish to be (Past 1 Month) No 022 5:15 PM EDT Gaby Sharp, RN 2. Non-Specific Active Suici chris Thoughts (Past 1 Month) No 08/15/2021 5:15 PM EDT Gaby Sharp, RN 6. Suicidal Behavior (Lifetime) No 2 5:15 PM EDT Gaby Sharp, RN documented as of this encounter Plan of Treatment Upcoming Encounters Date Type Department Care Team (Late st Contact Info) Description 10/12/2024 Procedure Pass [address] [address] 05/09/2025 3:10 PM EDT Appointment [address] [address] Abad Cee DO [address] [facility] [place] [address] [email or web address] documented as of this encounter Visit Diagnoses Diagnosis Other constipation- Primary documented in this encounter Care Teams Plier Worker Relationship Specialty Start Date End Date Abad Cee DO PCP - General 08/17/13 documented as of this encounter Additional Source Comments The information contained in this document represents components of the legal health record. It is not the complete legal health record.[facility]
--- OUTSIDE RECORDS SUMMARY | 2024-10-27 11:48 | XMS_ITS | Encounter Summary ---
Author Organization [facility] Address [address] [place] [address] [place] [address] Phone Care Team Providers Care Low Altitude Air Defense Gunner Name Role Phone Abad Cee DO Primary Care Provider [phone] Encounter Details Date Type Department Care Team (Latest Contact Info) Description 06/12/2018 Transcribe Orders [facility] [address] [place] [address] Dajuan Santillan, EMMA [address] [place] [address] [email or web address] Abdominal pain, left lower quadrant (Primary Dx); Iron deficiency anemia, unspecified iron deficiency anemia type Social History Tobacco Use Types Packs/Day Years Used Date Smoking Tobacco: Never Smokeless Tobacco: Never Comments Unknown Sex and Gender Information Value Date Recorded Sex Assigned at Female 10/12/2019 5:57 AM EDT Legal Sex Female 5:35 PM EST Gender Identity Not on file Sexual Orientation Straight 10/12/2019 5: 57 AM EDT documented as of this encounter Plan of Treatment Upcoming Encounters Date Type Department Care Team (Late st Contact Info) Description 10/12/2024 Procedure Pass [address] [address] 05/09/2025 3:10 PM EDT Appointment [address] [address] Abad Cee DO 179 [facility] [place] [address] [place] [address] documented as of this encounter Results * TSH (06/12/2018 10:22 AM EDT) [facility] TSH 3.17 0.27 - 4.20 uIU/mL [facility] Blood 06/12/2018 10:2 2 AM EDT 06/12/2018 10:47 AM EDT Dajuan Santillan ORTHOPEDIC RADIOLOGIC TECHNOLOGIST LAB BLOOD ORDERABLES Final Re sult Performing Organization Address [facility]/ZIP Co de Phone Number [address] [address] * (ABNORMAL) Iron and iron binding capacity (06/12/2018 10:22 AM EDT) [facility] IRON 21(L) 30 - 160 ug/dL [facility] IRON BINDING CAPACITY 270 228 - 428 ug/dL [facility] TRANSFERRIN SATURAT. 8(L) 15 - 50 % [facility] Blood 06/12/2018 10:2 2 AM EDT 06/12/2018 10:47 AM EDT Dajuan Santillan ORTHOPEDIC RADIOLOGIC TECHNOLOGIST LAB BLOOD ORDERABLES Final Re sult Performing Organization Address [facility] Co de Phone Number [address] [address] * Hepatitis C genotyping (06/12/2018 10:22 AM EDT) [facility] HCV GENOTYPE Undetected Undetected [facility] Comment: (NOTE) Assay failed to detect HCV RNA. This assay is not intended for HCV RNA detection purposes. ADDITIONAL INFORMATION This test was performed using the Devi RealTime HCV Genotype II assay ([employer] [place], [place]). Blood (Blood) 06/12/2018 10: 22 AM EDT 06/12/2018 10:47 AM EDT Dajuan Santillan NP NON CULTURE MICROBIOLOGY Quin l Result [facility] [address] [place] [address] * Hepatitis B surface antigen (06/12/2018 10:22 AM EDT) HBV SURFACE ANTIGEN Negative Negative [facility] Blood 06/12/2018 10:2 2 AM EDT 06/12/2018 10:47 AM EDT Dajuan Santillan NP LAB BLOOD ORDERABLES Final Re sult Performing Organization Address [facility]/ZIP Co de Phone Number [address] [address] * Hepatitis B surface antibody (06/12/2018 10:22 AM EDT) HBV SURFACE ANTIBODY Negative [facility] Comment: Unvaccinated: Negative Vaccinated: Positive Blood 06/12/2018 10:2 2 AM EDT 06/12/2018 10:47 AM EDT Dajuan Santillan NP LAB BLOOD ORDERABLES Final Re sult Performing Organization Address [facility]/ZIP Co de Phone Number [address] [address] * HEPATITIS A ANTIBODY, TOTAL (06/12/2018 10:22 AM EDT) HAV TOTAL AB Negative Negative [facility] Blood 06/12/2018 10:2 2 AM EDT 06/12/2018 10:47 AM EDT Dajuan Santillan NP LAB BLOOD ORDERABLES Final Re sult Performing Organization Address [facility]/ZIP Co de Phone Number [address] [address] * (ABNORMAL) C-Reactive Protein (06/12/2018 10:22 AM EDT) C REACTIVE PROTEIN 31.1(H) 0.0 - 4.0 mg/L [facility] Blood 06/12/2018 10:2 2 AM EDT 06/12/2018 10:47 AM EDT us Dajuan Santillan ORTHOPEDIC RADIOLOGIC TECHNOLOGIST LAB BLOOD ORDERABLES Final Re sult Performing Organization Address City/State/[facility] Co de Phone Number [address] [address] * (ABNORMAL) Comprehensive metabolic panel (06/12/2018 10:22 AM EDT) Pathologist [facility] SODIUM 140 133 - 146 mmol/L [facility] POTASSIUM 4.0 3.3 - 5.1 mmol/L [facility] CHLORIDE 99 96 - 108 mmol/L [facility] CO2 23 21 - 35 mmol/L [facility] BUN 12 6 - 19 mg/dL [facility] CREATININE 0.70 0.5 - 1.5 mg/dL [facility] GLUCOSE 86 70 - 99 mg/dL [facility] ALBUMIN 4.0 3.9 - 4.8 g/dL [facility] TOTAL PROTEIN 7.2 6.5 - 8.0 g/dL [facility] CALCIUM 9.9 8.4 - 10.3 mg/dL [facility] ALKALINE PHOSPHATASE 135(H) 39 - 117 U/L [facility] TOTAL BILIRUBIN <0.2 0.0 - 1.2 mg/dL [facility] AST 29 0 - 37 U/L [facility] ALT 32 0 - 40 U/L [facility] GLOBULIN 3.2 1 - 4.8 g/dL [facility] EGFR 96 >59 mL/min/1.7 3m2 [facility] Comment:If patient is black, multiply result by 1.159. Estimated glomerular filtration rate calculated using the CKD-EPI equation. ANION GAP 22(H) 10 - 20 mmol/L [facility] Blood 06/12/2018 10:2 2 AM EDT 06/12/2018 10:47 AM EDT Dajuan Santillan ORTHOPEDIC RADIOLOGIC TECHNOLOGIST LAB BLOOD ORDERABLES Final Re sult [facility] [address] [place] [address] * (ABNORMAL) CBC and differential (06/12/2018 10:22 AM EDT) WBC 17.50(H) 3.40 - 11.20 K/uL [facility] RBC 4.14 3.80 - 4.80 M/uL [facility] HGB 11.6(L) 12.0 - 15.0 g/dL [facility] HCT 35.6(L) 36.0 - 46.0 % [facility] PLT 541(H) 130 - 400 K/uL [facility] MCV 86.0 79.0 - 98.0 fL [facility] MCH 28.0 27.0 - 34.8 pg [facility] MCHC 32.6 31.5 - 36.0 g/dL [facility] RDW 22.8(H) 10.8 - 14.6 % [facility] MPV 9.4 9.4 - 12.4 fl [facility] NRBC 0.00 0.00 /100 WBCs [facility] ABSOLUTE NRBC 0.00 0.00 K/uL [facility] DIFF METHOD Auto [facility] NEUTS 73.5 45.30 - 77.70 % [facility] LYMPHS 16.9 12.30 - 39.70 % [facility] MONOS 7.8 4.10 - 12.80 % [facility] EOS 0.7 0 - 7.2 % [facility] BASOS 0.3 0 - 2.80 % [facility] Granulocytes, immature (%) 0.8 0.0 - 0.9 % [facility] ABSOLUTE NEUTS 12.87(H) 1.40 - 7.70 K/uL [facility] ABSOLUTE LYMPHS 2.95 0.60 - 3.20 K/uL [facility] ABSOLUTE MONOS 1.36(H) 0.11 - 0.59 K/uL [facility] ABSOLUTE EOS 0.12 0.01 - 0.50 K/uL [facility] ABSOLUTE BASOS 0.06 0.00 - 0.08 K/uL [facility] Granulocytes, immature 0.14(H) 0.00 - 0.05 K/uL [facility] Blood 06/12/2018 10:2 2 AM EDT 06/12/2018 10:47 AM EDT us Dajuan Santillan ORTHOPEDIC RADIOLOGIC TECHNOLOGIST LAB BLOOD ORDERABLES Final Re sult [facility] [address] [place] [address] documented in this encounter Visit Diagnoses Diagnosis Abdominal pain, left lower quadrant- Primary Iron deficiency anemia, unspecified iron deficiency anemia type documented in this encounter Additional Health Concerns Infection Onset Date Last Indicated Resolved Time MRSA Comment:Import to add expiration date of 05/05/2021 per Infection Control as part of historical infection status reconciliation 09/17/2008 09/17/2008 05/06/19 22 1:26 AM EDT documented as of this encounter Care Teams Low Altitude Air Defense Gunner Relationship Specialty Start Date End Date Abad Cee DO [email or web address] PCP - General 08/17/13 documented as of this encounter Additional Source Comments The information contained in this document represents components of the legal health record. It is not the complete legal health record.[facility]
--- OUTSIDE RECORDS SUMMARY | 2024-10-27 11:48 | XMS_ITS | Encounter Summary ---
Author Organization [facility] Address [address] [place] [address] Phone Care Team Providers Care Fish Bin Tender Name Role Phone Abad Cee DO Primary Care Provider [phone] Encounter Details Date Type Department Care Team (Late Contact Info) Description 10/26/2018 Procedure Pass [facility] Admitting Dept Virtual Department [address] [place] [address] Social History Tobacco Use Types Packs/Day Years Used Date Smoking Tobacco: Former Smokeless Tobacco: Never Alcohol Use Standard Drinks/Week Comments Not Currently 0 (1 standard drink = 0.6 oz pur e alcohol) Comments Unknown Sex and Gender Information Value Date Recorded Sex Assigned at Female 10/12/2019 5:57 AM EDT Legal Sex Female 5:35 PM EST Gender Identity Not on file Sexual Orientation Straight 10/12/2019 5: 57 AM EDT documented as of this encounter Plan of Treatment Upcoming Encounters Date Type Department Care Team (Late Contact Info) Description 10/12/2024 Procedure Pass [address] [address] 05/09/2025 3:10 PM EDT Appointment [address] [address] Abad Cee DO 179 [place] [address] documented as of this encounter Visit Diagnoses Not on filedocumented in this encounter Additional Health Concerns Infection Onset Date Last Indicated Resolved Time MRSA Comment:Import to add expiration date of 05/05/2021 per Infection Control as part of historical infection status reconciliation 09/17/2008 09/17/2008 05/06/19 22 1:26 AM EDT documented as of this encounter Care Teams Fish Bin Tender Relationship Specialty Start Date End Date HyacinthAbad pitt DO [place] [email or web address] PCP - General 08/17/13 documented as of this encounter Additional Source Comments The information contained in this document represents components of the legal health record. It is not the complete legal health record.[facility]
--- OUTSIDE RECORDS SUMMARY | 2024-10-27 11:48 | XMS_ITS | Encounter Summary ---
Author Organization [facility] Address [address] [place] [address] Phone Care Team Providers Care Engagement Specialist Name Role Phone Abad Cee DO Primary Care Provider [phone] Encounter Details Date Type Department Care Team (Late Contact Info) Description 05/09/2021 Procedure Pass [address] [address] Social History Tobacco Use Types Packs/Day Years [...] st Contact Info) Description 10/12/2024 Procedure Pass [address] [address] 05/09/2025 3:10 PM EDT Appointment [address] [address] Abad Cee DO 179 [facility] [place] [address] documented as of this encounter Visit Diagnoses Not on filedocumented in this encounter Care Teams Engagement Specialist Relationship Specialty Start Date End Date Abad Cee DO [email or web address] PCP - General 08/17/13 documented as of this encounter Additional Source Comments The information contained in this document represents components of the legal health record. It is not the complete legal health record.[facility]
--- OUTSIDE RECORDS SUMMARY | 2024-10-27 11:48 | XMS_ITS | Encounter Summary ---
Author Organization [facility] Address [address] [address] Phone Care Team Providers Care Worksite Wellness Practitioner Name Role Phone Abad Cee DO Primary Care Provider [phone] Encounter Details Date Type Department Care Team (Late Contact Info) Description 01/07/2023 Transcribe Orders Virtual Department [address] [place] [address] Abad Cee DO 179 [facility] [place] [address] [place] [address] [email or web address] Ventral hernia without obstruction or gangrene (Primary Dx) Social History Tobacco Use Types Packs/Day Years Used Date Smoking Tobacco: Former Smokeless Tobacco: Never Alcohol Use Standard Drinks/Week Comments Not Currently 0 (1 standard drink = 0.6 oz pur e alcohol) Education Answer Date Recorded Are you interested in more education? Not on teresa e 06/15/2022 Are you concerned about learning? Not on file 06/15/2022 No 06/15/2022 No 06/15/2022 Digital Access Answer Date Recorded No 07/14/2022 No 07/14/2022 Reliable internet access at home? Not on file 07/14/2022 Device with a working camera? Not on file Comments No Sex and Gender Information Value Date Recorded Sex Assigned at Female 10/12/2019 5:57 AM EDT Legal Sex Female 5:35 PM EST Gender Identity Not on file Sexual Orientation Straight 10/12/2019 5: 57 AM EDT documented as of this encounter Plan of Treatment Upcoming Encounters Date Type Department Care Team (Late Contact Info) Description 10/12/2024 Procedure Pass [address] [address] 05/09/2025 3:10 PM EDT Appointment [address] [address] Abad Cee DO 179 [facility] [place] [address] [email or web address] documented as of this encounter Visit Diagnoses Diagnosis Ventral hernia without obstruction or gangrene- Primary Unspecified ventral hernia without mention of obstruction or gangrene documented in this encounter Care Teams Worksite Wellness Practitioner Relationship Specialty Start Date End Date Abad Cee DO PCP - General 08/17/13 documented as of this encounter Additional Source Comments The information contained in this document represents components of the legal health record. It is not the complete legal health record.[facility]
--- OUTSIDE RECORDS SUMMARY | 2024-10-27 11:48 | XMS_ITS | Encounter Summary ---
Author Organization [facility] Address [address] [place] [address] [place] [address] Phone Care Team Providers Care Aerodynamic Consultant Name Role Phone Abad Cee DO Primary Care Provider [phone] Encounter Details Date Type Department Care Team (Late Contact Info) Description 09/18/2017 Transcribe Orders [facility] [address] [place] [address] Abad Cee DO 179 [place], [place] [phone] Hemorrhage of rectum and anus (Primary Dx) Social History Tobacco Use Types Packs/Day Years Used Date Smoking Tobacco: Never Assessed Comments Unknown Sex and Gender Information Value Date Recorded Sex Assigned at Female 10/12/2019 5:57 AM EDT Legal Sex Female 5:35 PM EST Gender Identity Not on file Sexual Orientation Straight 10/12/2019 5: 57 AM EDT documented as of this encounter Plan of Treatment Upcoming Encounters Date Type Department Care Team (Late st Contact Info) Description 10/12/2024 Procedure Pass [address] [address] 05/09/2025 3:10 PM EDT Appointment [address] [address] Abad Cee DO 179 [place], [place] [phone] documented as of this encounter Results * Comprehensive metabolic panel (09/18/2017 10:13 AM EDT) SODIUM 136 133 - 146 mmol/L [facility] POTASSIUM 4.6 3.3 - 5.1 mmol/L [facility] CHLORIDE 100 96 - 108 mmol/L [facility] CO2 23 21 - 35 mmol/L [facility] BUN 16 6 - 19 mg/dL [facility] CREATININE 0.80 0.5 - 1.5 mg/dL [facility] GLUCOSE 99 70 - 99 mg/dL [facility] ALBUMIN 4.0 3.9 - 4.8 g/dL [facility] TOTAL PROTEIN 6.8 6.5 - 8.0 g/dL [facility] CALCIUM 9.3 8.4 - 10.3 mg/dL [facility] ALKALINE PHOSPHATASE 117 39 - 117 U/L [facility] TOTAL BILIRUBIN <0.2 0.0 - 1.2 mg/dL [facility] AST 19 0 - 37 U/L [facility] ALT 18 0 - 40 U/L [facility] GLOBULIN 2.8 1 - 4.8 g/dL [facility] EGFR 81 >59 mL/min/1.7 3m2 [facility] Comment:If patient is black, multiply result by 1.159. Estimated glomerular filtration rate calculated using the CKD-EPI equation. ANION GAP 18 10 - 20 mmol/L [facility] Blood 09/18/2017 10:1 3 AM EDT 09/18/2017 10:21 AM EDT us Abad Cee DO LAB BLOOD ORDERABLES Final Resul t [facility] [address] [place] [address] * (ABNORMAL) Ferritin (09/18/2017 10:13 AM EDT) FERRITIN 6(L) 13 - 150 ug/L [facility] Blood 09/18/2017 10:1 3 AM EDT 09/18/2017 10:21 AM EDT us Abad A Bigda DO LAB BLOOD ORDERABLES Final Resul t Performing Organization Address [facility]/ZIP Co de Phone Number [address] [address] * (ABNORMAL) Iron and iron binding capacity (09/18/2017 10:13 AM EDT) IRON 20(L) 30 - 160 ug/dL [facility] IRON BINDING CAPACITY 369 228 - 428 ug/dL [facility] TRANSFERRIN SATURAT. 5(L) 15 - 50 % [facility] Blood 09/18/2017 10:1 3 AM EDT 09/18/2017 10:21 AM EDT us Abad A Bigda DO LAB BLOOD ORDERABLES Final Resul t Performing Organization Address [facility] Co de Phone Number [address] [address] * (ABNORMAL) CBC and differential (09/18/2017 10:13 AM EDT) WBC 11.51(H) 3.40 - 11.20 K/uL [facility] RBC 3.54(L) 3.80 - 4.80 M/uL [facility] HGB 9.3(L) 12.0 - 15.0 g/dL [facility] HCT 29.3(L) 36.0 - 46.0 % [facility] PLT 608(H) 130 - 400 K/uL [facility] MCV 82.8 79.0 - 98.0 [facility] MCH 26.3(L) 27.0 - 34.8 pg [facility] MCHC 31.7 31.5 - 36.0 g/dL [facility] RDW 17.3(H) 10.8 - 14.6 % [facility] MPV 9.2(L) 9.4 - 12.4 fl [facility] NRBC 0.00 /100 WBCs [facility] ABSOLUTE NRBC 0.00 K/uL [facility] DIFF METHOD Auto [facility] NEUTS 55.5 45.30 - 77.70 % [facility] LYMPHS 33.8 12.30 - 39.70 % [facility] MONOS 8.2 4.10 - 12.80 % [facility] EOS 1.6 0 - 7.2 % [facility] BASOS 0.4 0 - 2.80 % [facility] Granulocytes, immature (%) 0.5 0.0 - 0.9 % [facility] ABSOLUTE NEUTS 6.39 1.40 - 7.70 K/uL [facility] ABSOLUTE LYMPHS 3.89(H) 0.60 - 3.20 K/uL [facility] ABSOLUTE MONOS 0.94(H) 0.11 - 0.59 K/uL [facility] ABSOLUTE EOS 0.18 0.01 - 0.50 K/uL [facility] ABSOLUTE BASOS 0.05 0.00 - 0.08 K/uL [facility] Granulocytes, immature 0.06(H) 0.00 - 0.05 K/uL [facility] Blood 09/18/2017 10:1 3 AM EDT 09/18/2017 10:21 AM EDT us Abad Cee DO LAB BLOOD ORDERABLES Final Resul t [facility] [address] [place] [address] documented in this encounter Visit Diagnoses Diagnosis Hemorrhage of rectum and anus- Primary documented in this encounter Additional Health Concerns Infection Onset Date Last Indicated Resolved Time MRSA Comment:Import to add expiration date of 05/05/2021 per Infection Control as part of historical infection status reconciliation 09/17/2008 09/17/2008 05/06/19 22 1:26 AM EDT documented as of this encounter Care Teams Aerodynamic Consultant Relationship Specialty Start Date End Date Abad Cee DO PCP - General 08/17/13 documented as of this encounter Additional Source Comments The information contained in this document represents components of the legal health record. It is not the complete legal health record.[facility]
--- OUTSIDE RECORDS SUMMARY | 2024-10-27 11:48 | XMS_ITS | Encounter Summary ---
Author Organization [facility] Address [address] [address] Phone Care Team Providers Care Strategic Marketing Manager Name Role Phone Abad Cee DO Primary Care Provider [phone] Encounter Details Date Type Department Care Team ([facility] st Contact Info) Description 10/12/2024 Transcribe Orders Virtual Department [address] [place] [address] Abad Cee DO 179 [facility] [place] [address] [place] [address] [email or web address] Breast screening (Primary Dx); Asymptomatic menopausal state; Other specified disorders of bone density and structure, unspecified site; Osteopenia after menopause Social History Tobacco Use Types Packs/Day Years [...] st Contact Info) Description 10/12/2024 Procedure Pass [address] [address] 05/09/2025 3:10 PM EDT Appointment [address] [address] Abad Cee DO 179 [facility] [place] [address] [email or web address] Scheduled Orders Name Type Priority Associated Diagnoses Orde r Schedule Mammogram Screening (Bilateral) Imaging Routine Breast screening Expected: 11/12/2024, Expires: 10/12/2025 DXA Screening Imaging Routine Asymptomatic menopausal state Other specified disorders of bone density and structure, unspecified site Osteopenia after menopause Expected: 11/11/2024, Expires: 10/12/2025 documented as of this encounter Visit Diagnoses Diagnosis Breast screening- Primary Breast screening, unspecified Asymptomatic menopausal state Other specified disorders of bone density and structure, unspecified site Osteopenia after menopause documented in this encounter Care Teams Strategic Marketing Manager Relationship Specialty Start Date End Date Abad Cee DO PCP - General 08/17/13 documented as of this encounter Additional Source Comments The information contained in this document represents components of the legal health record. It is not the complete legal health record.[facility]
--- OUTSIDE RECORDS SUMMARY | 2024-10-27 11:49 | XMS_ITS | Encounter Summary ---
Author Organization [facility] Address [facility] [address] [place] [address] Phone Care Team Providers Care Set Up Mechanic Heading Machines Name Role Phone Abad Cee Primary Care Provider [phone] Encounter Details Date Type Department Care Team (Late st Contact Info) Description 08/15/2021 Procedure Pass [facility], Ct Scan - [address] [address] Social History Tobacco Use Types Packs/Day Years [...] 5:15 PM EDT Gaby Sharp, RN * [place] Suicide Severity Rating Scale (Screener/Recent Self-Report) Question Answer Date of Assessment Author 1. Wish to be (Past 1 Month) No 022 5:15 PM EDT Gaby Sharp, RN 2. Non-Specific Active Suici chris Thoughts (Past 1 Month) No 08/15/2021 5:15 PM EDT Gaby Sharp, RN 6. Suicidal Behavior (Lifetime) No 5:15 PM EDT Gaby Sharp, RN documented as of this encounter Plan of Treatment Upcoming Encounters Date Type Department Care Team (Late st Contact Info) Description 10/12/2024 Procedure Pass [address] [address] 05/09/2025 3:10 PM EDT Appointment [address] [address] Abad Cee DO 179 [place] [address] [email or web address] documented as of this encounter Visit Diagnoses Not on filedocumented in this encounter Care Teams Set Up Mechanic Heading Machines Relationship Specialty Start Date End Date Abad Cee DO PCP - General 08/17/13 documented as of this encounter Additional Source Comments The information contained in this document represents components of the legal health record. It is not the complete legal health record.[facility]
--- OUTSIDE RECORDS SUMMARY | 2024-10-27 11:49 | XMS_ITS | Encounter Summary ---
Author Organization [facility] Address [address] [place] [address] Phone Care Team Providers Care Assistant Operations Manager Name Role Phone Abad Cee DO Primary Care Provider Encounter Details Date Type Department Care Team (Late st Contact Info) Description 01/04/2019 Transcribe Orders [facility] [address] [place] [address] Abad Cee DO [address] [place] [address] [email or web address] Diverticulosis of large intestine without diverticulitis (Primary Dx) Social History Tobacco Use Types [...] st Contact Info) Description 10/12/2024 Procedure Pass [address] [address] 05/09/2025 3:10 PM EDT Appointment [address] [address] Abad Cee DO [address] [place] [address] [email or web address] documented as of this encounter Results * (ABNORMAL) Comprehensive metabolic panel (01/04/2019 11:24 AM EST) SODIUM 142 133 - 146 mmol/L [facility] POTASSIUM 4.7 3.3 - 5.1 mmol/L [facility] CHLORIDE 105 96 - 108 mmol/L [facility] CO2 23 21 - 35 mmol/L [facility] BUN 13 6 - 19 mg/dL [facility] CREATININE 0.80 0.5 - 1.5 mg/dL [facility] GLUCOSE 104(H) 70 - 99 mg/dL [facility] ALBUMIN 4.0 3.9 - 4.8 g/dL [facility] TOTAL PROTEIN 7.3 6.5 - 8.0 g/dL [facility] CALCIUM 9.7 8.4 - 10.3 mg/dL [facility] ALKALINE PHOSPHATASE 109 39 - 117 U/L [facility] TOTAL BILIRUBIN <0.2 0.0 - 1.2 mg/dL [facility] AST 25 0 - 37 U/L [facility] ALT 15 0 - 40 U/L [facility] GLOBULIN 3.3 1 - 4.8 g/dL [facility] EGFR 81 >59 mL/min/1.7 3m2 [facility] Comment:If patient is black, multiply result by 1.159. Estimated glomerular filtration rate calculated using the CKD-EPI equation. ANION GAP 19 10 - 20 mmol/L [facility] Blood 01/04/2019 11:2 4 AM EST 01/04/2019 11:33 AM EST us Abad A Bigda DO LAB BLOOD ORDERABLES Final Resul t [facility] [address] [place] [address] * (ABNORMAL) CBC (01/04/2019 11:24 AM EST) WBC 16.12(H) 3.40 - 11.20 K/uL [facility] RBC 3.99 3.80 - 4.80 M/uL [facility] HGB 13.3 12.0 - 15.0 g/dL [facility] HCT 39.5 36.0 - 46.0 % [facility] PLT 526(H) 130 - 400 K/uL [facility] MCV 99.0(H) 79.0 - 98.0 fL [facility] MCH 33.3 27.0 - 34.8 pg [facility] MCHC 33.7 31.5 - 36.0 g/dL [facility] RDW 14.0 10.8 - 14.6 % [facility] MPV 9.5 9.4 - 12.4 fl [facility] NRBC 0.00 0.00 /100 WBCs [facility] ABSOLUTE NRBC 0.00 0.00 K/uL [facility] Blood 01/04/2019 11:2 4 AM EST 01/04/2019 11:33 AM EST us Abad Cee DO LAB BLOOD ORDERABLES Final Resul t [facility] [address] [place] [address] documented in this encounter Visit Diagnoses Diagnosis Diverticulosis of large intestine without diverticulitis- Primary Diverticulosis of colon (without mention of hemorrhage) documented in this encounter Additional Health Concerns Infection Onset Date Last Indicated Resolved Time MRSA Comment:Import to add expiration date of 05/05/2021 per Infection Control as part of historical infection status reconciliation 09/17/2008 09/17/2008 05/06/19 22 1:26 AM EDT documented as of this encounter Care Teams Assistant Operations Manager Relationship Specialty Start Date End Date Abad Cee DO PCP - General 08/17/13 documented as of this encounter Additional Source Comments The information contained in this document represents components of the legal health record. It is not the complete legal health record.[facility]
--- OUTSIDE RECORDS SUMMARY | 2024-10-27 11:49 | XMS_ITS | Encounter Summary ---
Author Organization [facility] Address [address] [place] [address] Phone Care Team Providers Care Sustainable Agriculture Specialist Name Role Phone Abad Cee DO Primary Care Provider [phone] Encounter Details Date Type Department Care Team (Latest Contact Info) Description 10/04/2019 Transcribe Orders Virtual Department [address] [place] [address] Kelly Dee PA [address] [place] [address] [place] [address] Thoracic back pain, unspecified back pain laterality, unspecified chronicity (Primary Dx) Social History Tobacco Use Types [...] st Contact Info) Description 10/12/2024 Procedure Pass [address] [address] 05/09/2025 3:10 PM EDT Appointment [address] [address] Abad Cee DO [address] [place] [address] [place] [address] [email or web address] documented as of this encounter Results * XR THORACIC SPINE 3 VIEW (10/12/2019 10:11 AM EDT) Anatomical Region Laterality Modality T-spine Computed Radiogr aphy 10/12/2019 10:1 3 AM EDT Impressions 10/12/2019 10:15 AM EDT Mild scoliotic curvature without acute bony abnormality identified. MRI could be considered for further evaluation if there is clinical suspicion of disc protrusion or occult fracture. POS - [id number] Narrative 10/12/2019 10:15 AM EDT COMPARISON: 06/26/2011 FINDINGS: Frontal, lateral, and swimmer's views were obtained revealing no vertebral body fracture or subluxation. There is a mild left convex thoracic curvature. Visualized paraspinal soft tissues are within normal limits. Procedure Note Ricardo Mortensen MD - 10/12/2019 COMPARISON: 06/26/2011 FINDINGS: Frontal, lateral, and swimmer's views were obtained revealing no vertebralbody fracture or subluxation. There is a mild left convex thoraciccurvature. Visualized paraspinal soft tissues are within normal limits. IMPRESSION: Mild scoliotic curvature without acute bony abnormality identified. MRIcould be considered for further evaluation if there is clinical suspicionof disc protrusion or occult fracture. POS - [id number] Kelly MAKI IMElvira XR SPINE Final Resul t documented in this encounter Visit Diagnoses Diagnosis Thoracic back pain, unspecified back pain laterality, unspecified chronicity- Primary Thoracic back pain, unspecified back pain laterality, unspecified chronicity documented in this encounter Additional Health Concerns Infection Onset Date Last Indicated Resolved Time MRSA Comment:Import to add expiration date of 05/05/2021 per Infection Control as part of historical infection status reconciliation 09/17/2008 09/17/2008 05/06/19 22 1:26 AM EDT documented as of this encounter Care Teams Sustainable Agriculture Specialist Relationship Specialty Start Date End Date Abad Cee DO [email or web address] PCP - General 08/17/13 documented as of this encounter Additional Source Comments The information contained in this document represents components of the legal health record. It is not the complete legal health record.[facility]
--- OUTSIDE RECORDS SUMMARY | 2024-10-27 11:49 | XMS_ITS | Encounter Summary ---
Author Organization [facility] Address [address] [place] [address] Phone Care Team Providers Care Central Supply Worker Name Role Phone Abad Cee DO Primary Care Provider [phone] Encounter Details Date Type Department Care Team (Late Contact Info) Description 12/25/2021 Procedure Pass [facility] Ct Scan [address] [address] Social History Tobacco Use Types Packs/Day Years [...] (Late Contact Info) Description 10/12/2024 Procedure Pass [address] [address] 05/09/2025 3:10 PM EDT Appointment [address] [address] Abad Cee DO [address] [facility] [place] [address] documented as of this encounter Visit Diagnoses Not on filedocumented in this encounter Care Teams Central Supply Worker Relationship Specialty Start Date End Date Abad Cee DO [email or web address] PCP - General 08/17/13 documented as of this encounter Additional Source Comments The information contained in this document represents components of the legal health record. It is not the complete legal health record.[facility]
--- OUTSIDE RECORDS SUMMARY | 2024-10-27 11:49 | XMS_ITS | Encounter Summary ---
Author Organization [facility] Address [address] [place] [address] Phone Care Team Providers Care Forest Pathology Professor Name Role Phone Abad Cee DO Primary Care Provider [phone] Encounter Details Date Type Department Care Team (Late st Contact Info) Description 12/10/2016 Ancillary Orders Virtual Department [address] [place] [address] Abad Cee DO [address] [place] [address] Breast screening Social History Tobacco Use Types Packs/Day Years [...] st Contact Info) Description 10/12/2024 Procedure Pass [address] [address] 05/09/2025 3:10 PM EDT Appointment [address] [address] Abad Cee DO [address] [place] [address] documented as of this encounter Visit Diagnoses Diagnosis Breast screening Breast screening, unspecified documented in this encounter Additional Health Concerns Infection Onset Date Last Indicated Resolved Time MRSA Comment:Import to add expiration date of 05/05/2021 per Infection Control as part of historical infection status reconciliation 09/17/2008 09/17/2008 05/06/19 1:26 AM EDT documented as of this encounter Care Teams Forest Pathology Professor Relationship Specialty Start Date End Date Abad Cee DO [email or web address] PCP - General 08/17/13 documented as of this encounter Additional Source Comments The information contained in this document represents components of the legal health record. It is not the complete legal health record.[facility]
--- OUTSIDE RECORDS SUMMARY | 2024-10-27 11:49 | XMS_ITS | Encounter Summary ---
Author Organization [facility] Address [address] [place] [address] Phone Care Team Providers Care Supervisor Coremaker Name Role Phone Abad Cee DO Primary Care Provider [phone] Encounter Details Date Type Department Care Team (Late st Contact Info) Description 08/31/2019 Transcribe Orders [facility] [address] [place] [address] Abad Cee DO [address] [facility] [place] [address] [email or web address] Fatigue, unspecified type (Primary Dx); Anorexia; Iron deficiency anemia, unspecified iron deficiency anemia [...] st Contact Info) Description 10/12/2024 Procedure Pass [address] [address] 05/09/2025 3:10 PM EDT Appointment [address] [address] Abad Cee DO [address] [place] [address] documented as of this encounter Results * (ABNORMAL) Iron and iron binding capacity (08/31/2019 11:49 AM EDT) IRON 46 30 - 160 ug/dL [facility] IRON BINDING CAPACITY 444(H) 228 - 428 ug/dL [facility] TRANSFERRIN SATURAT. 10(L) 15 - 50 % [facility] Blood 08/31/2019 11:4 9 AM EDT 08/31/2019 12:05 PM EDT us Abad Cee DO LAB BLOOD ORDERABLES Final Resul t [facility] [address] [place] [address] * (ABNORMAL) Comprehensive metabolic panel (08/31/2019 11:49 AM EDT) SODIUM 137 133 - 146 mmol/L [facility] POTASSIUM 4.6 3.3 - 5.1 mmol/L [facility] CHLORIDE 104 96 - 108 mmol/L [facility] CO2 21 21 - 35 mmol/L [facility] BUN 16 6 - 19 mg/dL [facility] CREATININE 0.80 0.5 - 1.5 mg/dL [facility] GLUCOSE 101(H) 70 - 99 mg/dL [facility] ALBUMIN 4.6 3.9 - 4.8 g/dL [facility] TOTAL PROTEIN 7.7 6.5 - 8.0 g/dL [facility] CALCIUM 9.8 8.4 - 10.3 mg/dL [facility] ALKALINE PHOSPHATASE 134(H) 39 - 117 U/L [facility] TOTAL BILIRUBIN <0.2 0.0 - 1.2 mg/dL [facility] AST 25 0 - 37 U/L [facility] ALT 11 0 - 40 U/L [facility] GLOBULIN 3.1 1 - 4.8 g/dL [facility] EGFR 80 >59 mL/min/1.7 3m2 [facility] Comment:Estimated glomerular filtration rate calculated using the CKD-EPI equation. ANION GAP 17 10 - 20 mmol/L [facility] Blood 08/31/2019 11:4 9 AM EDT 08/31/2019 12:05 PM EDT us Abad A Bigda DO LAB BLOOD ORDERABLES Final Resul t Performing Organization Address [facility] de Phone Number [address] [address] * Free T4 (08/31/2019 11:49 AM EDT) FREE T4 1.0 0.9 - 1.7 ng/dL [facility] Blood 08/31/2019 11:4 9 AM EDT 08/31/2019 12:05 PM EDT us Baad A Bigda DO LAB BLOOD ORDERABLES Final Resul t Performing Organization Address [facility] de Phone Number [address] [address] * TSH (08/31/2019 11:49 AM EDT) TSH 1.43 0.27 - 4.20 uIU/mL [facility] Blood 08/31/2019 11:4 9 AM EDT 08/31/2019 12:05 PM EDT us Abad A Bigda DO LAB BLOOD ORDERABLES Final Resul t Performing Organization Address [facility] de Phone Number [address] [address] documented in this encounter Visit Diagnoses Diagnosis Fatigue, unspecified type- Primary Anorexia Iron deficiency anemia, unspecified iron deficiency anemia type documented in this encounter Additional Health Concerns Infection Onset Date Last Indicated Resolved Time MRSA Comment:Import to add expiration date of 05/05/2021 per Infection Control as part of historical infection status reconciliation 09/17/2008 09/17/2008 05/06/19 22 1:26 AM EDT documented as of this encounter Care Teams Supervisor Coremaker Relationship Specialty Start Date End Date Abad Cee DO [email or web address] PCP - General 08/17/13 documented as of this encounter Additional Source Comments The information contained in this document represents components of the legal health record. It is not the complete legal health record.[facility]
--- OUTSIDE RECORDS SUMMARY | 2024-10-27 11:49 | XMS_ITS | Clinical Summary ---
Author Organization [facility] Address [address] [place] [address] [place] [address] Phone Care Team Providers Care Legal Writing Professor Name Role Phone Mirna Smith Primary Care Provider [phone] Allergies Active Allergy Reactions Criticality Noted Date Comments Ciprofloxacin 12/07/2019 Iodinated Contrast Media Other (See Comments) 02/22/2013 swelling, confusion Moxifloxacin Hcl Unknown 02/22/2013 swelling, confusion Other Diarrhea 03/02/2019 Eggs-nausea, diarrhea Medications prochlorperazine (COMPAZINE) 10 MG tablet Take 10 mg by mouth every 6 (six) hours as needed. Active dicyclomine (BENTYL) 10 MG capsule Take 10 mg by mouth daily. Active estradioL (CLIMARA) 0.05 mg/[address] 1 patch onto the skin once a week. Active therapeutic multivitamin tablet Take 1 tablet by mouth daily. Active cholecalciferol (VITAMIN D3) 25 MCG (1,000 unit) tablet Take 1,000 Units by mouth daily. Active diphenhydrAMINE (BENADRYL ALLERGY) 25 mg tablet 2 tablets one hour prior to test 2 tablet 3 Active cetirizine (ZYRTEC) 10 MG tablet Take 1 tablet 1 hour prior to test 1 tablet 3 Active predniSONE (DELTASONE) 50 MG tablet 1 tablet by mouth 13, 7, and 1 hour prior to the test 3 tablet 3 Active Active Problems Patient Care Coordination No te Formatting of this note migh t be different from the original. Height 151 cm no shoes 03/03/19 Problem Noted Date Diagnosed Date Diverticular disease 03/02/2019 Assessment & Plan (03/02/2019 11:18 AM EST): The patient presents to discuss surgery for diverticulitis. She has been having LLQ abdominal pain and fever. On review of her records, I do not see evidence on CT or colonoscopy of having had diverticulitis and would consider the possibility of colitis. In the meantime, if she should start feeling dramatically worse, she should present to the ER. She has had a colon resection in the past and she understands that another colon surgery could be challenging. I discussed this case with Dr. Larkin of GI who agrees with repeat CT scan. Await CT scan results. Allergic reaction to contrast dye 03/02/2019 Assessment & Plan (03/02/2019 11:07 AM EST): The patient has an allergy to iodinated contrast media, reaction consisting of swelling and confusion. A prescription for a few prednisone is given to take for her upcoming CT scan. Iron deficiency anemia 07/01/2018 Encounters Date Type Department Care Team Description 10/12/2024 Transcribe Orders Virtual Department [address] [place] [address] Mirna Smith, DO Breast screening (Primary Dx); Asymptomatic menopausal state; Other specified disorders of bone density and structure, unspecified site; Osteopenia after menopause from Last 3 Months Immunizations Immunization Administration Dates Next Due COVID-19 (Pre-12/09) Pfizer Vaccine, mRNA, PF 07/05/2021,01/13/2021,07/10/2020,2020 Influenza Quadrivalent w/ Preservative IM 01/13/2021 Influenza, Unspecified Formulation 03/02(Deferred: Other),02/27/2013(Deferred: Other) Family History Medical History Relation Comments Hypertension Father Relation Status Comments Father Mother Social History Tobacco Use Types Packs/Day Years Used Date Smoking Tobacco: Former Smokeless Tobacco: Never Tobacco Cessation:Counseling Given: Not Answered Alcohol Use Standard Drinks/Week Comments Not Currently [...] Orientation Straight 10/12/2019 5: 57 AM EDT Last Filed Vital Signs Vital Sign Reading Time Taken Comments Blood Pressure 108/60 09/11/2022 3:23 PM EDT Pulse 91 09/11/2022 3:23 PM EDT Temperature 37.1 C (98.7 F) 09/11/2022 3:23 PM EDT Respiratory Rate 16 08/15/2021 7:18 PM EDT Oxygen Saturation 97% 09/11/2022 3:23 PM EDT Inhaled Oxygen Concentration - - Weight 44.9 kg (99 lb) 09/11/2022 3:23 PM EDT Height 149.9 cm (4' 11 ) 09/11/2022 3:23 PM EDT Body Mass Index 20 09/11/2022 3:23 PM EDT Plan of Treatment Upcoming Encounters Date Type Department Care Team (Late st Contact Info) Description 10/12/2024 Procedure Pass [address] [address] 05/09/2025 3:10 PM EDT Appointment [address] [address] Mirna Smith DO [address] [facility] [place] [address] [email or web address] Health Maintenance Due Date Last Done Comments Adult Td,Tdap Booster 1960 LIPID PANEL 1960 DEPRESSION SCREENING 1971 SMOKING Hx and SMOKELESS TOBACCO SCREENING 08/28/1972 HIV ONE-TIME SCREENING (18-65 YEARS) 08/28/1977 COLOGUARD 08/28/2004 FIT TEST 08/28/2004 FOBT 08/28/2004 SIGMOIDOSCOPY 08/28/2004 VIRTUAL COLONOSCOPY 08/28/2004 PNEUMOCOCCAL VACCINES (50+ years) (1 of 1 - PCV) 08/28/2009 ZOSTER VACCINES (1 of 2) 08/28/2009 COVID-19 VACCINE (5 - season) 2023 07/05/2021, 01/13/2021, 07/10/2020, Additional history exists MAMMOGRAM 01/16/2024 01/15/2022 OSTEOPOROSIS SCREENING INITIAL (ONE-TIME) 08/28/2024 INFLUENZA VACCINE (#1) 2024 01/13/2021 COLONOSCOPY 02/05/2029 02/05/2019, 11/06/2017 COLORECTAL CANCER SCREENING 02/05/2029 RSV VACCINE (1 - 1-dose 75+ series) 08/28/2034 HEPATITIS C SCREENING Completed 06/12/2018 HEPATITIS A VACCINES Aged Out No long er eligible based on patient's age to complete this topic HIB VACCINES Aged Out No longer eligi ble based on patient's age to complete this topic MENINGOCOCCAL VACCINES (ACWY) Aged Out No longer eligible based on patient's age to complete this topic MENINGOCOCCAL VACCINES (B) Aged Out N o longer eligible based on patient's age to complete this topic Medical Devices Implanted Type Area Cargo Service Supervisor Device Identifier Shelf Expiration Date Model / Serial / Lot Ureter Procedures Procedure Name Priority Date/Time Associated Diagnosis Comments BI MAMMOGRAM SCREENING WITH TOMOSYNTHESIS WITH CAD (BILATERAL) Routine 01/15/2022 10:53 AM EST Breast screening ENDOSCOPY, COLON 02/05/2019 11:3 8 AM EST HEPATITIS C GENOTYPING Routine 9 10:22 AM EDT Abdominal pain, left lower quadrant Iron deficiency anemia, unspecified iron deficiency anemia type from Last 3 Months or Most Recently Relevant to Health Maintenance Results * BI MAMMOGRAM SCREENING WITH TOMOSYNTHESIS WITH CAD (BILATERAL) (01/15/2022 10:53 AM EST) Anatomical Region Laterality Modality Breast Left, Breast Right, Breast Bilateral Bila teral Mammography 01/16/2022 6:40 PM EST Impressions 01/16/2022 6:43 PM EST BILATERAL BREASTS: Negative, no specific mammographic evidence of malignancy. Normal interval follow-up is recommended in 12 months. BI-RADS: BI-RADS CATEGORY: 1 - Negative. DENSITY: The breast tissue is heterogeneously dense, which could obscure a lesion on mammography. Narrative 01/16/2022 6:43 PM EST STUDY: BI MAMMOGRAM SCREENING WITH TOMOSYNTHESIS WITH CAD (BILATERAL) TECHNIQUE: Bilateral full-field digital screening mammography is obtained and read in conjunction with computer-aided detection. Tomosynthesis as well as 2-D C view imaging were obtained. COMPARISON: August 22, 2010 and May 26, 2008 BREAST COMPOSITION: The breast tissue is heterogeneously dense, which may obscure small masses. BILATERAL BREASTS: No significant masses, suspicious calcifications or other abnormalities are seen in either breast. Procedure Note Maryam Moser MD - 01/16/2022 STUDY: BI MAMMOGRAM SCREENING WITH TOMOSYNTHESIS WITH CAD (BILATERAL) TECHNIQUE: Bilateral full-field digital screening mammography is obtainedand read in conjunction with computer-aided detection. Tomosynthesis aswell as 2-D C view imaging were obtained. COMPARISON: August 22, 2010 and May 26, 2008 BREAST COMPOSITION: The breast tissue is heterogeneously dense, which mayobscure small masses. BILATERAL BREASTS: No significant masses, suspicious calcifications orother abnormalities are seen in either breast. IMPRESSION: BILATERAL BREASTS: Negative, no specific mammographic evidence ofmalignancy. Normal interval follow-up is recommended in 12 months. BI-RADS: BI-RADS CATEGORY: 1 - Negative. DENSITY: The breast tissue is heterogeneously dense, which could obscurea lesion on mammography. us Mirna A Bigda DO IMG MG EXAMS Final Result * ENDOSCOPY, COLON (02/05/2019 11:38 AM EST) Narrative Transcriptions Black Larkin MD - 02/05/2019 11:38 AM EST Patient Name: Deann Lucien Attending MD:: BLACK LARKIN MD, Procedure Date: 02/05/2019 11:38AM Date of : 1960 Age: 58 Admit Type: Outpatient Gender: Female Room: [place] [address] Referring MD: MIRNA SMITH DO Exam Type: Colonoscopy Indications: Abdominal pain in the left lower quadrant Medications: Monitored Anesthesia Care Procedure: Informed consent was obtained from the patient after discussion of the indications, limitations,alternatives, benefits, and risks of the procedure. Risksspecifically discussed include but are not limited to medication reactions, missed lesions, bleeding, perforation, orthe need for emergent surgery. Throughout the procedure, the patient's blood pressure, pulse, end-tidal CO2, and oxygen saturations were monitored continuously. The Olympus pediatric variable colonoscope [id number]-[id number] was introduced through the anus and advanced to thececum, identified by appendiceal orifice and ileocecal valve.The colonoscopy was performed without difficulty. Thepatient tolerated the procedure well. The quality of the bowel preparation was excellent. The quality of the bowel preparation was evaluated using the BBPS ([place] Bowel Preparation Scale) with scores of: Right Colon = 3(entire mucosa seen well with no residual staining, small fragments of stool or opaque liquid), Transverse Colon= 3 (entire mucosa seen well with no residual staining,small fragments of stool or opaque liquid) and Left Colon = 3 (entire mucosa seen well with no residual staining,small fragments of stool or opaque liquid). The total BBPSscore equals 9. The quality of the bowel preparation wasgood. Complications: No immediate complications. Estimated blood loss:None. Findings: Hemorrhoids were found on perianal exam. There was evidence of a prior end-to-side ileo-colonic anastomosis in the cecum. This was patent. Internal hemorrhoids were found during retroflexion.The hemorrhoids were severe. The exam was otherwise normal throughout the examined colon. Impression: - Hemorrhoids found on perianal exam. - Patent end-to-side ileo-colonic anastomosis. - Internal hemorrhoids. - No specimens collected. Recommendation: - Discharge patient to home. - Repeat colonoscopy in 10 years for screeningpurposes. - Return to GI office as previously scheduled. BLACK LARKIN MD, 02/05/2019 11:56:01 AM This report has been signed electronically. Number of Addenda: 0 Note Initiated On: 02/05/2019 11:38 AM Procedure Code(s): --- Professional --- 77183, Colonoscopy, flexible; diagnostic, including collection of specimen(s) by brushing or washing, when performed (separateprocedure) --- Technical --- 95667, Colonoscopy, flexible; diagnostic, including collection of specimen(s) by brushing or washing, when performed (separateprocedure) Diagnosis Code(s): --- Professional --- K64.8, Other hemorrhoids Z98.0, Intestinal bypass and anastomosis status R10.32, Left lower quadrant pain --- Technical --- K64.8, Other hemorrhoids Z98.0, Intestinal bypass and anastomosis status R10.32, Left lower quadrant pain CPT copyright 2018 [employer]. All rights reserved. The codes documented in this report are preliminary and upon vat overhauler reviewmay be revised to meet current compliance requirements. [address] [facility], [place] [address] us Mirna A Bigda DO GI PROCEDURE ORDERABLES Final Re sult * Hepatitis C genotyping (06/12/2018 10:22 AM EDT) HCV GENOTYPE Undetected Undetected [facility] Comment: (NOTE) Assay failed to detect HCV RNA. This assay is not intended for HCV RNA detection purposes. ADDITIONAL INFORMATION This test was performed using the Devi RealTime HCV Genotype II assay ([employer] [place], [place]). Blood (Blood) 06/12/2018 10: 22 AM EDT 06/12/2018 10:47 AM EDT us Dajuan Santillan NP NON CULTURE MICROBIOLOGY Quin l Result [facility] [address] [place] [address] from Last 3 Months or Most Recently Relevant to Health Maintenance Insurance MEDICARE PART A & B [place] BLUE REPLACEMENT [facility] MEDICARE PART A & [place] BL[place] RE[place] [facility] MEDICARE PART A & B Member Subscriber Plan / Payer (Ef fective 2001-Present) Name:Deann Mcgraw Member ID:[id number] Relation to Subscriber:Self Name:Deann Mcgraw Subscriber ID:[id number] Payer ID:[id number] Group ID:Not on file Type:Medicare Address: [facility]Specimen [facility] [address] [place] [address] [place] [address] MEDICARE HMO BLUE REPLACEMENT MEDICARE PART A & B [facility] MEDICARE HMO BLUE REPLACEMENT [place]ICARE PART A & B [place] BLUE [facility] MEDICARE PART A & B [facility] MEDICARE HMO BLUE REPLACEMENT [facility] MEDICARE PART A & B [facility] MEDICARE HMO BLUE REPLACEMENT [facility] MEDICARE PART A & [place]AC[place] A [place] BL[place] REPLACEMENT [facility] Advance Directives For more information, please contact: [phone] (9AM - 5PM 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 It is not the complete legal health record.[facility]
--- OUTSIDE RECORDS SUMMARY | 2024-10-27 11:49 | XMS_ITS | Encounter Summary ---
Author Organization [facility] Address [address] [address] Phone Care Team Providers Care Time Piece Repairer Name Role Phone Abad Cee DO Primary Care Provider [phone] Encounter Details Date Type Department Care Team (Late Contact Info) Description 08/12/2022 Transcribe Orders Virtual Department [address] [place] [address] Abad Cee DO [address] [facility] [place] [address] [place] [address] Acute abdomen (Primary Dx) Social History Tobacco Use Types [...] (Late Contact Info) Description 10/12/2024 Procedure Pass [facility], [address] [address] 05/09/2025 3:10 PM EDT Appointment [address] [address] Abad Cee DO [address] [facility] [place] [address] [email or web address] documented as of this encounter Visit Diagnoses Diagnosis Acute abdomen- Primary Abdominal pain, unspecified site documented in this encounter Care Teams Time Piece Repairer Relationship Specialty Start Date End Date Abad Cee DO PCP - General 08/17/13 documented as of this encounter Additional Source Comments The information contained in this document represents components of the legal health record. It is not the complete legal health record.[facility]
--- OUTSIDE RECORDS SUMMARY | 2024-10-27 11:49 | XMS_ITS | Encounter Summary ---
Author Organization [facility] Address [address] [place] [address] [place] [address] Phone Care Team Providers Care Plastic Surgeon Name Role Phone Abad Cee DO Primary Care Provider [phone] Encounter Details Date Type Department Care Team (Latest Contact Info) Description 02/22/2019 Transcribe Orders [facility] [address] [place] [address] Kelly Salgado NP [address] [place] [phone] [email or web address] [employer] Constipation, unspecified constipation type (Primary Dx); Fever, unspecified fever cause; Abdominal pain, left lower quadrant; Nausea Social History Tobacco Use Types Packs/Day Years [...] st Contact Info) Description 10/12/2024 Procedure Pass [address] [address] 05/09/2025 3:10 PM EDT Appointment [address] [address] Abad Cee DO [address] [place] [address] [email or web address] documented as of this encounter Results * (ABNORMAL) Comprehensive metabolic panel (02/22/2019 8:33 AM EST) SODIUM 138 133 - 146 mmol/L [facility] POTASSIUM 4.6 3.3 - 5.1 mmol/L [facility] CHLORIDE 102 96 - 108 mmol/L [facility] CO2 22 21 - 35 mmol/L [facility] BUN 13 6 - 19 mg/dL [facility] CREATININE 0.80 0.5 - 1.5 mg/dL [facility] GLUCOSE 103(H) 70 - 99 mg/dL [facility] ALBUMIN 4.4 3.9 - 4.8 g/dL [facility] TOTAL PROTEIN 7.3 6.5 - 8.0 g/dL [facility] CALCIUM 9.7 8.4 - 10.3 mg/dL [facility] ALKALINE PHOSPHATASE 136(H) 39 - 117 U/L [facility] TOTAL BILIRUBIN <0.2 0.0 - 1.2 mg/dL [facility] AST 30 0 - 37 U/L [facility] ALT 19 0 - 40 U/L [facility] GLOBULIN 2.9 1 - 4.8 g/dL [facility] EGFR 81 >59 mL/min/1.7 3m2 [facility] Comment:If patient is black, multiply result by 1.159. Estimated glomerular filtration rate calculated using the CKD-EPI equation. ANION GAP 19 10 - 20 mmol/L [facility] Blood 02/22/2019 8:33 AM EST 02/22/2019 8:46 AM EST us Kelly Salgado NP LAB BLOOD ORDERABLES Final Result [facility] [address] [place] [address] * (ABNORMAL) CBC and differential (02/22/2019 8:33 AM EST) WBC 13.69(H) 3.40 - 11.20 K/uL [facility] RBC 3.80 3.80 - 4.80 M/uL [facility] HGB 12.4 12.0 - 15.0 g/dL [facility] HCT 36.5 36.0 - 46.0 % [facility] PLT 419(H) 130 - 400 K/uL [facility] MCV 96.1 79.0 - 98.0 fL [facility] MCH 32.6 27.0 - 34.8 pg [facility] MCHC 34.0 31.5 - 36.0 g/dL [facility] RDW 14.1 10.8 - 14.6 % [facility] MPV 9.8 9.4 - 12.4 fl [facility] NRBC 0.00 0.00 /100 WBCs [facility] ABSOLUTE NRBC 0.00 0.00 K/uL [facility] DIFF METHOD Auto [facility] NEUTS 74.0 45.30 - 77.70 % [facility] LYMPHS 19.4 12.30 - 39.70 % [facility] MONOS 5.0 4.10 - 12.80 % [facility] EOS 0.3 0 - 7.2 % [facility] BASOS 0.4 0 - 2.80 % [facility] Granulocytes, immature (%) 0.9 0.0 - 0.9 % [facility] ABSOLUTE NEUTS 10.14(H) 1.40 - 7.70 K/uL [facility] ABSOLUTE LYMPHS 2.65 0.60 - 3.20 K/uL [facility] ABSOLUTE MONOS 0.68(H) 0.11 - 0.59 K/uL [facility] ABSOLUTE EOS 0.04 0.01 - 0.50 K/uL [facility] ABSOLUTE BASOS 0.06 0.00 - 0.08 K/uL [facility] Granulocytes, immature 0.12(H) 0.00 - 0.05 K/uL [facility] Blood 02/22/2019 8:33 AM EST 02/22/2019 8:46 AM EST us Kelly Salgado HOME THEATER EXPERIENCE EXPERT LAB BLOOD ORDERABLES Final Result [facility] [address] [place] [address] documented in this encounter Visit Diagnoses Diagnosis Constipation, unspecified constipation type- Primary Fever, unspecified fever cause Abdominal pain, left lower quadrant Nausea Nausea alone documented in this encounter Additional Health Concerns Infection Onset Date Last Indicated Resolved Time MRSA Comment:Import to add expiration date of 05/05/2021 per Infection Control as part of historical infection status reconciliation 09/17/2008 09/17/2008 05/06/19 1:26 AM EDT documented as of this encounter Care Teams Plastic Surgeon Relationship Specialty Start Date End Date Abad Cee DO [email or web address] PCP - General 08/17/13 documented as of this encounter Additional Source Comments The information contained in this document represents components of the legal health record. It is not the complete legal health record.[facility]
--- OUTSIDE RECORDS SUMMARY | 2024-10-27 11:49 | XMS_ITS | Encounter Summary ---
Author Organization [facility] Address [address] [address] Phone Care Team Providers Care Belt And Link Shop Supervisor Name Role Phone Abad Cee DO Primary Care Provider [phone] Encounter Details Date Type Department Care Team (Late Contact Info) Description 08/14/2022 Ancillary Orders Virtual Department [address] [place] [address] Abad Cee DO [address] [place] [address] [email or web address] Acute abdomen Social History Tobacco Use Types Packs/Day Years [...] (Late Contact Info) Description 10/12/2024 Procedure Pass [address] [address] 05/09/2025 3:10 PM EDT Appointment [address] [address] Abad Cee DO [address] [place] [address] [email or web address] documented as of this encounter Results * XR Abdomen Series Supine with Decubitus/Erect and Single View Chest (08/14/2022 11:45 AM EDT) Anatomical Region Laterality Modality Abdomen, Chest Computed Radiogr aphy 08/15/2022 5:40 AM EDT Impressions 08/15/2022 5:41 AM EDT Nonobstructive bowel gas pattern. Moderate stool in the transverse colon, not clearly outside the wide spectrum of normal. Narrative 08/15/2022 5:41 AM EDT XR ABDOMEN SERIES SUPINE WITH DECUBITIS/ERECT AND SINGLE VIEW CHEST COMPARISON: None FINDINGS: Tubes/Lines: None Bowel: Moderate stool in the transverse colon. No bowel dilatation. Procedure Note Dell Amador MD - 08/15/2022 XR ABDOMEN SERIES SUPINE WITH DECUBITIS/ERECT AND SINGLE VIEW CHEST COMPARISON: None FINDINGS: Tubes/Lines: None Bowel: Moderate stool in the transverse colon. No bowel dilatation. IMPRESSION: Nonobstructive bowel gas pattern. Moderate stool in the transverse colon, not clearly outside the widespectrum of normal. us Abad Cee DO IMG XR ABDOMEN Final Result documented in this encounter Visit Diagnoses Diagnosis Acute abdomen Abdominal pain, unspecified site Acute abdomen Abdominal pain, unspecified site documented in this encounter Care Teams Belt And Link Shop Supervisor Relationship Specialty Start Date End Date Abad Cee DO [email or web address] PCP - General 08/17/13 documented as of this encounter Additional Source Comments The information contained in this document represents components of the legal health record. It is not the complete legal health record.[facility]
--- OUTSIDE RECORDS SUMMARY | 2024-10-27 11:49 | XMS_ITS | Encounter Summary ---
Author Organization [facility] Address [address] [place] [address] Phone Care Team Providers Care Roller Coaster Engineer Name Role Phone Abad Cee DO Primary Care Provider [phone] Encounter Details Date Type Department Care Team (Late Contact Info) Description 02/05/2019 Procedure Pass [facility] Endoscopy Admitting Dept Virtual Department [address] [place] [phone] Social History Tobacco Use Types Packs/Day Years [...] (Late Contact Info) Description 10/12/2024 Procedure Pass [address] [address] 05/09/2025 3:10 PM EDT Appointment [address] [address] Abad Cee DO 179 [facility] [place] [address] documented as of this encounter Visit Diagnoses Not on filedocumented in this encounter Additional Health Concerns Infection Onset Date Last Indicated Resolved Time MRSA Comment:Import to add expiration date of 05/05/2021 per Infection Control as part of historical infection status reconciliation 09/17/2008 09/17/2008 05/06/19 22 1:26 AM EDT documented as of this encounter Care Teams Roller Coaster Engineer Relationship Specialty Start Date End Date HyacinthAbad pitt DO [place] [email or web address] PCP - General 08/17/13 documented as of this encounter Additional Source Comments The information contained in this document represents components of the legal health record. It is not the complete legal health record.[facility]
--- OUTSIDE RECORDS SUMMARY | 2024-10-27 11:49 | XMS_ITS | Encounter Summary ---
Author Organization [facility] Address [address] [address] Phone Care Team Providers Care Logistics Intern Name Role Phone Abad Cee DO Primary Care Provider [phone] Encounter Details Date Type Department Care Team (Late Contact Info) Description 08/14/2022 Ancillary Orders Virtual Department [address] [place] [address] Abad Cee DO 179 [facility] [place] [address] [email or web address] Acute abdomen Social History Tobacco Use Types [...] (Late Contact Info) Description 10/12/2024 Procedure Pass [address] [address] 05/09/2025 3:10 PM EDT Appointment [address] [address] Abad Cee DO 179 [facility] [place] [address] [email or web address] documented as of this encounter Visit Diagnoses Diagnosis Acute abdomen Abdominal pain, unspecified site documented in this encounter Care Teams Logistics Intern Relationship Specialty Start Date End Date Abad Cee DO [email or web address] PCP - General 08/17/13 documented as of this encounter Additional Source Comments The information contained in this document represents components of the legal health record. It is not the complete legal health record.[facility]
--- OUTSIDE RECORDS SUMMARY | 2024-10-27 11:49 | XMS_ITS | Encounter Summary ---
Author Organization [facility] Address [address] [place] [address] Phone Care Team Providers Care Mix Chemist Name Role Phone Abad Cee DO Primary Care Provider [phone] Encounter Details Date Type Department Care Team (Late Contact Info) Description 12/10/2021 Procedure Pass [address] [address] Social History Tobacco Use Types Packs/Day Years [...] st Contact Info) Description 10/12/2024 Procedure Pass [address] [address] 05/09/2025 3:10 PM EDT Appointment [address] [address] Abad Cee DO 179 [facility] [place] [address] documented as of this encounter Visit Diagnoses Not on filedocumented in this encounter Care Teams Mix Chemist Relationship Specialty Start Date End Date Abad Cee DO [email or web address] PCP - General 08/17/13 documented as of this encounter Additional Source Comments The information contained in this document represents components of the legal health record. It is not the complete legal health record.[facility]
--- OUTSIDE RECORDS SUMMARY | 2024-10-27 11:49 | XMS_ITS | Encounter Summary ---
Author Organization [facility] Address [address] [place] [address] Phone Care Team Providers Care Hospitality Services Manager Name Role Phone Abad Cee DO Primary Care Provider [phone] Encounter Details Date Type Department Care Team (Late st Contact Info) Description 11/06/2017 Procedure Pass [facility] Endoscopy Admitting Dept Virtual Department [address] [place] [address] Social History Tobacco Use Types Packs/Day Years [...] st Contact Info) Description 10/12/2024 Procedure Pass [address] [address] 05/09/2025 3:10 PM EDT Appointment [address] [address] Abad Cee DO 179 [place] [address] documented as of this encounter Visit Diagnoses Not on filedocumented in this encounter Additional Health Concerns Infection Onset Date Last Indicated Resolved Time MRSA Comment:Import to add expiration date of 05/05/2021 per Infection Control as part of historical infection status reconciliation 09/17/2008 09/17/2008 05/06/19 22 1:26 AM EDT documented as of this encounter Care Teams Hospitality Services Manager Relationship Specialty Start Date End Date Hyacinthyoandy Abad DO [place] [email or web address] PCP - General 08/17/13 documented as of this encounter Additional Source Comments The information contained in this document represents components of the legal health record. It is not the complete legal health record.[facility]
--- OUTSIDE RECORDS SUMMARY | 2024-10-27 11:49 | XMS_ITS | Encounter Summary ---
Author Organization [facility] Address [address] [place] [address] [place] [address] Phone Care Team Providers Care Wet Finisher Name Role Phone HyacinthyoandyAbad DO Primary Care Provider [phone] Reason for Referral * MRI/CAT Scan - Closed Specialty Diagnoses / Procedures Referred By Morris pruitt Referred To Contact Radiology Diagnoses Abdominal pain, left lower quadrant Iron deficiency anemia, unspecified iron deficiency anemia type Procedures CT Abdomen/Pelvis Dajuan Santillan NP Phone: tel: fax: [email or web address] Referral ID Status Reason Start Date Expiration Date Visits Re quested Visits Authorized [id number] Closed 06/12/2018 06/12/2019 1 1 Encounter Details Date Type Department Care Team (Latest Contact Info) Description 06/12/2018 Transcribe Orders Virtual Department [address] [place] [address] Dajuan Santillan NP [address] [place] [address] [email or web address] Abdominal pain, left lower quadrant (Primary [...] st Contact Info) Description 10/12/2024 Procedure Pass [facility] [address] [place] [address] 05/09/2025 3:10 PM EDT Appointment [facility] [address] [place] [address] Abad Cee, 179 [facility] [place] [address] documented as of this encounter Results * CT ABDOMEN/PELVIS WITHOUT CONTRAST (06/18/2018 2:56 PM EDT) Anatomical Region Laterality Modality Abdomen, Pelvis Computed Tomogra phy 06/18/2018 2:57 PM EDT Impressions 06/18/2018 3:07 PM EDT Prominent colonic stool suggesting constipation, with a fairly long segment of distal descending colonic and sigmoid mural edema but without secondary paracolic inflammatory changes to confirm active colitis. Clinical correlation necessary. No evidence of diverticulitis or other acute intra-abdominal or retroperitoneal pathology. There is again limited evaluation of the solid viscera due to the lack of intravenous contrast. TOTAL CTDIvol: 5.40 mGy POS - [id number] Narrative 06/18/2018 3:07 PM EDT COMPARISON: 06/13/2016 CT TECHNIQUE: After the administration of oral but without intravenous contrast as per request, reportedly due to a prior contrast reaction, multidetector CT is obtained from dome of the liver through the inferior pubic rami. Multiplanar reformatted images generated. Automated exposure control utilized FINDINGS: Liver is grossly stable in size. No perihepatic ascites or extrahepatic duct dilatation. No choledocholithiasis apparent. The spleen is stable in size as are both adrenal glands. No pancreatic enlargement or peripancreatic inflammatory changes are detected. No hydronephrosis, perinephric stranding, or urinary calculi are seen. Patient is status-post cyst ectomy with the diverting ileostomy stable in appearance. No large free fluid collections have developed in the dependent portion of the pelvis. There is a large amount of stool throughout the distal ascending, transverse, and proximal and mid descending colon. Immediately beyond the largest stool focus in the left lower quadrant the bowel is collapsed but there is the suggestion of some progressive mural thickening/edema overall length of at least 11 cm, but without surrounding inflammatory infiltration present. There is a small amount of stool and gas in the distal sigmoid and upper rectum. No free intraperitoneal air. No bowel-containing abdominal wall hernia. No evidence of aortoiliac aneurysm. No grossly enlarged mesenteric, para-aortic, iliac chain, or inguinal lymph nodes are seen when allowing for the limitations of the non-contrast state. No acute infiltrate or pleural effusion are demonstrated at the lung bases. No traumatic or destructive skeletal lesions are apparent. Procedure Note Derek Hatfield MD - 06/18/2018 COMPARISON: 06/13/2016 CT TECHNIQUE: After the administration of oral but without intravenouscontrast as per request, reportedly due to a prior contrast reaction,multidetector CT is obtained from dome of the liver through the inferiorpubic rami. Multiplanar reformatted images generated. Automated exposurecontrol utilized FINDINGS: Liver is grossly stable in size. No perihepatic ascites or extrahepaticduct dilatation. No choledocholithiasis apparent. The spleen is stable in size as are both adrenal glands. No pancreaticenlargement or peripancreatic inflammatory changes are detected. No hydronephrosis, perinephric stranding, or urinary calculi are seen.Patient is status-post cyst ectomy with the diverting ileostomy stable inappearance. No large free fluid collections have developed in thedependent portion of the pelvis. There is a large amount of stool throughout the distal ascending,transverse, and proximal and mid descending colon. Immediately beyond thelargest stool focus in the left lower quadrant the bowel is collapsed butthere is the suggestion of some progressive mural thickening/edema overalllength of at least 11 cm, but without surrounding inflammatoryinfiltration present. There is a small amount of stool and gas in thedistal sigmoid and upper rectum. No free intraperitoneal air. Nobowel-containing abdominal wall hernia. No evidence of aortoiliac aneurysm. No grossly enlarged mesenteric,para-aortic, iliac chain, or inguinal lymph nodes are seen when allowingfor the limitations of the non-contrast state. No acute infiltrate or pleural effusion are demonstrated at the lungbases. No traumatic or destructive skeletal lesions are apparent. IMPRESSION: Prominent colonic stool suggesting constipation, with a fairly longsegment of distal descending colonic and sigmoid mural edema but withoutsecondary paracolic inflammatory changes to confirm active colitis.Clinical correlation necessary. No evidence of diverticulitis or otheracute intra-abdominal or retroperitoneal pathology. There is againlimited evaluation of the solid viscera due to the lack of intravenouscontrast. TOTAL CTDIvol: 5.40 mGy POS - [id number] Dajuan Santillan NP IMG CT ABD/PELVIS Final Resul t documented in this encounter Visit Diagnoses Diagnosis Abdominal pain, left lower quadrant- Primary Iron deficiency anemia, unspecified iron deficiency anemia type Abdominal pain, left lower quadrant Iron deficiency anemia, unspecified iron deficiency anemia type documented in this encounter Additional Health Concerns Infection Onset Date Last Indicated Resolved Time MRSA Comment:Import to add expiration date of 05/05/2021 per Infection Control as part of historical infection status reconciliation 09/17/2008 09/17/2008 05/06/19 22 1:26 AM EDT documented as of this encounter Care Teams Wet Finisher Relationship Specialty Start Date End Date Abad Cee DO [email or web address] PCP - General 08/17/13 documented as of this encounter Additional Source Comments The information contained in this document represents components of the legal health record. It is not the complete legal health record.[facility]
--- OUTSIDE RECORDS SUMMARY | 2024-10-27 11:49 | XMS_ITS | Encounter Summary ---
Author Organization [facility] Address [address] [place] [address] Phone Care Team Providers Care Community Dietitian Name Role Phone Abad Cee DO Primary Care Provider Reason for Referral * MRI/CAT Scan - Closed Specialty Diagnoses / Procedures Referred By Morris pruitt Referred To Contact Radiology Diagnoses Partial intestinal obstruction, unspecified cause Procedures CT Abdomen/Pelvis CHG CT SCAN,ABDOMENT AND PELVIS,W CONTRAST CHG CT SCAN,ABDOMENT AND PELVIS,COMBO CHG CT SCAN,ABDOMENT AND PELVIS,W/O CONTRAST Abad Cee DO Phone: tel: fax: mailto:[email or web address] Referral ID Status Reason Start Date Expiration Date Visits Re quested Visits Authorized [id number] Closed 12/25/2021 02/22/2022 1 1 Encounter Details Date Type Department Care Team (Late st Contact Info) Description 12/25/2021 Transcribe Orders Virtual Department [address] [place] [address] Abad Cee DO 179 [facility] [place] [address] [email or web address] Partial intestinal obstruction, unspecified cause (Primary Dx) Social History Tobacco Use Types [...] st Contact Info) Description 10/12/2024 Procedure Pass [address] [address] 05/09/2025 3:10 PM EDT Appointment [address] [address] Abad Cee DO 179 [facility] [place] [address] [email or web address] documented as of this encounter Results * CT ABDOMEN/PELVIS WITHOUT CONTRAST (01/15/2022 12:39 PM EST) Anatomical Region Laterality Modality Abdomen, Pelvis Computed Tomogra phy 01/15/2022 4:07 PM EST Impressions 01/16/2022 11:54 AM EST -No evidence of bowel obstruction. -Similar mild right hydronephrosis, likely related to chronic right ureteropelvic junction obstruction. -No evidence of abdominopelvic metastasis by noncontrast CT. Narrative 01/16/2022 11:[address] ABDOMEN/PELVIS WITHOUT CONTRAST TECHNIQUE: Multidetector-row CT of the abdomen and pelvis was performed without intravenous contrast using tailored dose modulation techniques. Images were reconstructed in the axial, coronal, and sagittal planes. COMPARISON: CT abdomen/pelvis 08/15/2021. ABSENCE OF INTRAVENOUS CONTRAST DECREASES SENSITIVITY FOR DETECTION OF FOCAL LESIONS AND VASCULAR PATHOLOGY. FINDINGS: Lower Chest: Normal. No consolidation or pleural effusions. Liver: Normal. No focal lesions. Biliary: Normal. No biliary ductal dilatation. Spleen: Normal. No splenomegaly or focal lesions. Pancreas: Normal. No masses or ductal dilatation. Adrenal Glands: Normal. No nodules. Kidneys/Ureters: Similar mild right hydronephrosis, with caliber transition at the right ureteropelvic junction. The more distal right ureter also appears mildly prominent caliber, similar to prior. No left hydroureteronephrosis. Foci of right upper pole renal cortical scarring. Bowel: Moderate colonic stool burden, mildly improved since 08/15/21. No evidence of bowel obstruction. Peritoneum/Retroperitoneum: Normal. No masses, pneumoperitoneum, or fluid. Lymph Nodes: Normal. No lymphadenopathy. Pelvic Organs/Bladder: Prior hysterectomy. Prior cystectomy with right lower quadrant urostomy. Similar mildly prominent caliber of the ileal conduit, without focal transition point. Vessels: Normal. No abdominal aortic aneurysm. Bones/Soft Tissues: Normal. No destructive osseous lesions. Procedure Note Dell Amador MD - 01/16/2022 CT ABDOMEN/PELVIS WITHOUT CONTRAST TECHNIQUE: Multidetector-row CT of the abdomen and pelvis was performedwithout intravenous contrast using tailored dose modulation techniques.Images were reconstructed in the axial, coronal, and sagittal planes. COMPARISON: CT abdomen/pelvis 08/15/2021. ABSENCE OF INTRAVENOUS CONTRAST DECREASES SENSITIVITY FOR DETECTION OFFOCAL LESIONS AND VASCULAR PATHOLOGY. FINDINGS: Lower Chest: Normal. No consolidation or pleural effusions. Liver: Normal. No focal lesions. Biliary: Normal. No biliary ductal dilatation. Spleen: Normal. No splenomegaly or focal lesions. Pancreas: Normal. No masses or ductal dilatation. Adrenal Glands: Normal. No nodules. Kidneys/Ureters: Similar mild right hydronephrosis, with calibertransition at the right ureteropelvic junction. The more distal rightureter also appears mildly prominent caliber, similar to prior. No lefthydroureteronephrosis. Foci of right upper pole renal cortical scarring. Bowel: Moderate colonic stool burden, mildly improved since 08/15/21. Noevidence of bowel obstruction. Peritoneum/Retroperitoneum: Normal. No masses, pneumoperitoneum, orfluid. Lymph Nodes: Normal. No lymphadenopathy. Pelvic Organs/Bladder: Prior hysterectomy. Prior cystectomy with rightlower quadrant urostomy. Similar mildly prominent caliber of the ilealconduit, without focal transition point. Vessels: Normal. No abdominal aortic aneurysm. Bones/Soft Tissues: Normal. No destructive osseous lesions. IMPRESSION: -No evidence of bowel obstruction. -Similar mild right hydronephrosis, likely related to chronic rightureteropelvic junction obstruction. -No evidence of abdominopelvic metastasis by noncontrast CT. us Abad Cee DO IMG CT ABD/PELVIS Final Result documented in this encounter Visit Diagnoses Diagnosis Partial intestinal obstruction, unspecified cause- Primary Partial intestinal obstruction, unspecified cause documented in this encounter Care Teams Community Dietitian Relationship Specialty Start Date End Date Abad Cee DO [email or web address] PCP - General 08/17/13 documented as of this encounter Additional Source Comments The information contained in this document represents components of the legal health record. It is not the complete legal health record.[facility]
--- OUTSIDE RECORDS SUMMARY | 2024-10-27 11:49 | XMS_ITS | Encounter Summary ---
Author Organization [facility] Address [address] [place] [address] Phone Care Team Providers Care Journeyman Molder Name Role Phone Abad Cee DO Primary Care Provider [phone] Encounter Details Date Type Department Care Team (Late Contact Info) Description 12/10/2021 Transcribe Orders Virtual Department [address] [place] [address] Abad Cee DO [address] [place] [address] [email or web address] Breast screening (Primary Dx) Social History Tobacco Use Types [...] st Contact Info) Description 10/12/2024 Procedure Pass [address] [address] 05/09/2025 3:10 PM EDT Appointment [address] [address] Abad Cee DO [address] [place], [place] [id number] [email or web address] documented as of this encounter Results * BI MAMMOGRAM SCREENING WITH TOMOSYNTHESIS [...] which could obscurea lesion on mammography. us Abad Cee DO IMG MG EXAMS Final Result documented in this encounter Visit Diagnoses Diagnosis Breast screening- Primary Breast screening, unspecified Breast screening Breast screening, unspecified documented in this encounter Care Teams Journeyman Molder Relationship Specialty Start Date End Date Abad Cee DO PCP - General 08/17/13 documented as of this encounter Additional Source Comments The information contained in this document represents components of the legal health record. It is not the complete legal health record.[facility]
--- OUTSIDE RECORDS SUMMARY | 2024-10-27 11:50 | XMS_ITS | Encounter Summary ---
Author Organization [facility] Address [address] [place] [address] [place] [address] Phone Care Team Providers Care Sql Architect Name Role Phone Abad Cee Primary Care Provider [phone] Encounter Details Date Type Department Care Team (Late st Contact Info) Description 09/11/2022 Procedure Pass [facility], Ct Scan - [facility] [address] [place] [address] Social History Tobacco Use Types Packs/Day Years [...] st Contact Info) Description 10/12/2024 Procedure Pass [facility], Mammography- [facility] [address] [place] [address] 05/09/2025 3:10 PM EDT Appointment [facility], [facility] [address] [place] [address] Abad Cee DO 179 [facility] [place] [place] [address] [email or web address] documented as of this encounter Visit Diagnoses Not on filedocumented in this encounter Care Teams Sql Architect Relationship Specialty Start Date End Date Abad Cee DO PCP - General 08/17/13 documented as of this encounter Additional Source Comments The information contained in this document represents components of the legal health record. It is not the complete legal health record.[facility]
[2024-10-27 14:00] LABS: MANUAL DIFF FLAG NO
[2024-10-27 14:07] LABS: Hematocrit 37.2 % (37.0-47.0); Hemoglobin 12.9 g/dl (12.0-16.0); Imm Gran Abs Auto 0.07 X10*3/uL (0.00-0.03); Imm Gran Pct Auto 0.5 % (0.0-0.4); Lymphocytes Absolute Auto 3.6 X10*3/uL (1.2-4.9); Mean Corpuscular HGB Conc 34.7 g/dl (31.0-35.0); Mean Corpuscular Hemoglobin 33.3 pg (27.0-33.0); Mean Corpuscular Volume 96.1 fL (80.0-98.0); NRBC Abs Auto 0.000 X10*3/uL (0.0-0.012); NRBC Pct Auto 0.0 /100WBC (0.0-0.2); Platelet Count 407 X10*3/uL (160-400); Red Blood Count 3.87 X10*6/uL (4.20-5.50); White Blood Count 14.5 X10*3/uL (4.8-10.8)
[2024-10-27 14:39] LABS: Alanine Aminotransferase 9 U/L (0-31); Albumin Level 4.1 g/dL (3.5-5.0); Alkaline Phosphatase 106 U/L (39-117); Anion Gap 14 (12-20); Aspartate Amino Transferase 22 U/L (5-31); Blood Urea Nitrogen 15 mg/dL (9-16); Calcium 9.2 mg/dL (8.4-10.2); Carbon Dioxide 23 mmol/L (22-29); Chloride 107 mmol/L (96-108); Estimated Glomerular Filt Rate > 60; Iron 49 mcg/dL (30-160); Percent Iron Saturation 21 % (15-50); Potassium 4.3 mmol/L (3.3-5.1); Sodium 140 mmol/L (135-145); Total Iron Binding Capacity 236 mcg/dL (228-428); Total Protein 6.8 g/dL (6.5-8.0); Unsaturated Iron Binding 187 ug/dL
[2024-10-27 14:49] LABS: Folate 7.5 ng/mL (> or = 4.0); Vitamin B12 349 pg/mL (200-900)
[2024-10-27 14:52] LABS: Ferritin 65 ng/mL (10-250)
== END 2024-10-27 09:51 | disposition home or self-care (01) ==
LOC: HO.MANLDS 09:50
PROVIDERS: Visit Provider Internal Medicine
DX: D50.9 Iron deficiency anemia, unspecified (principal)
CPT/HCPCS: 36415; 80053; 82306; 82607; 82728; 82746; 83540; 85025